=== PATIENT | female | born 1995 | race Caucasian/White ===

== ENCOUNTER 2022-12-28 08:40 | Inpatient (IN) ==
[~2022-12-28 08:40] MED LIST: CITRIC ACID/SODIUM CITRATE 15 ML UDC PO SCH
--- NOTE | 2022-12-28 09:09 | History & Physical Report ---
Date of Service December 28, 2022 Assessment & Plan (1) Breech presentation: Plan: Primary section History of Present Illness Chief Complaint: term with breech presentation with SROM Primary Care Provider: Aster Christina DO 27 F P0000 at 38.6 weeks with SROM clear fluid this AM and known to be breech. Ultrasound done at bedside confirms breech presentation. Allergies Allergy/AdvReac Type Severity Reaction Status Date / Time No Known Allergies Allergy Verified 12/25/22 16:42 Home Medications Medication Instructions Recorded Confirmed Type escitalopram oxalate 20 mg tablet 10 mg PO QAM 11/23/21 12/25/22 History (Lexapro) 1 cap PO QAM 12/25/22 12/25/22 History clindamycin phosphate 1 % topical 1 applic topical DAILY PRN ud 12/25/22 3 History gel Patient History Medical History Anxiety History of COVID-19 09/2021 (home test)- congestion, cold, runny nose > resolved Surgical History History of open reduction and internal fixation (ORIF) procedure Left Capitellar Fracture Hx of wisdom tooth extraction Family History (Updated 12/28/22 @ 09:07 by Kathleen Solorzano RN) Other No known health problems Social History Smoking Status: Never smoker Second Hand Exposure: No; Do You Dip or Chew Tobacco: No; Hx Alcohol Use: Yes Alcohol type: hard liquor Hx Substance Use: No Preferred Language: Romansh Communication Ability: Effective Shredding Floor Equipment Operator Required: No Beliefs That Will Affect Care: None marital status: Single Current Living Situation: Spouse current occupational status: employed Feels Safe at Home: Yes Assistive Devices: Contacts OB History breech CHEMICAL PUMPER History neg Review of Systems All systems reviewed & are unremarkable except as noted in HPI & below Physical Exam Constitutional: WD/WN, vitals as above Eyes: PERRL, conjunctivae normal, anicteric sclerae Respiratory: normal respiratory effort, lungs clear to auscultation Cardiovascular: RRR, no murmur, no edema Gastrointestinal (Abdomen): Inspection/Auscultation: abdomen normal to inspection Musculoskeletal: Extremities: extremities normal to inspection Skin: no rashes, warm and dry Neurologic: patellar DTR's 2+ bilat, sensation intact Psychiatric: A+Ox3, euthymic affect Genitourinary: OB Exam Abdomen: + fundal height and + breech OB Exam Monitor Tracing: + external FHT monitor used, + external uterine monitor used, + category I and + normal FHT variability Results & Data Vital Signs (Past 12 Hours) Vital Signs Pulse BP 12/28/22 08:52 67 126/83 Code Status & VTE Plan VTE Prophylaxis Plan VTE Prophylaxis will be ordered: No Monitoring External Monitor Cat 1
[2022-12-28] MEDS ORDERED: LACTATED RINGER'S 1,000 ML IV SCH ×2 (09:15→14:20)
--- NOTE | 2022-12-28 10:05 | Anesthesiology Consultation ---
Date of Service December 28, 2022 Assessment & Plan (1) Encounter for pre-operative examination: Chart Review Chart Review: Acceptable Risk for Surgery and Patient NOT seen in Pre Admission Testing Consults Requested none History Surgery Operation Date: 12/28/22 10:00 Proposed Procedures p Section in LD(Bilateral) - Carloz Brenner MD Height/Weight Height: 5 ft 2 in Weight: 124.738 kg Allergies Allergy/AdvReac Type Severity Reaction Status Date / Time No Known Allergies Allergy Verified 12/25/22 16:42 Medications Home Medications Medication Instructions Recorded Confirmed Last Taken escitalopram oxalate 20 mg tablet 10 mg PO QAM 11/23/21 12/28/22 12/28/22 (Lexapro) 1 cap PO QAM 12/25/22 12/28/22 12/27/22 clindamycin phosphate 1 % topical 1 applic topical DAILY PRN ud 12/25/22 12/28/22 Unknown gel Active Medications Generic Name Dose Route Start Last Admin Trade Name Freq PRN Reason Stop Dose Admin Lactated Ringer's 1,000 mls @ 999 mls/hr 12/28/22 09:15 12/28/22 09:35 Lr IV 12/28/22 10:15 125 mls/hr .Q1H1M MAR Administration Past Medical History Medical History Anxiety History of COVID-19 09/2021 (home test)- congestion, cold, runny nose > resolved Past Family History Family History Other No known health problems Past Surgical History Surgical History History of open reduction and internal fixation (ORIF) procedure Left Capitellar Fracture Hx of wisdom tooth extraction Social History Smoking Status: Never smoker Do You Dip or Chew Tobacco: No Hx Alcohol Use: No Alcohol type: hard liquor alcohol intake frequency: holidays/special occasions only Hx Substance Use: No substance use type: does not use Physical Exam Vital Signs Last Vital Signs Temp 97.9 F 12/28/22 09:11 Pulse 67 12/28/22 08:52 Resp 20 12/28/22 09:11 BP 126/83 12/28/22 08:52
[2022-12-28 10:33] LABS: Hematocrit (blood only) 34.5 % (37.0-47.0); Hemoglobin 11.8 g/dl (12.0-16.0); Mean Corpuscular Hemoglobin 31.6 pg (25.0-34.0); Mean Corpuscular Hgb Conc 34.2 g/dL (32.0-36.0); Mean Corpuscular Volume 92.2 fL (80.0-100.0); Platelet Count 227 K/uL (130-400); RDW Coefficient of Variation 13.2 % (11.5-14.5); RDW Standard Deviation 44.6 fL (36.4-46.3); Red Blood Count 3.74 M/uL (4.20-5.40); White Blood Count 10.86 K/ul (4.8-10.8)
[2022-12-28] MEDS ORDERED: KETOROLAC 30 MG/ML VIAL ONE (10:49)
[2022-12-28] MEDS ORDERED: fentaNYL citrate PF 100 MCG/2 ML VIAL ONE (10:49)
[2022-12-28] MEDS ORDERED: MoRPHine SULFATE PF 1 MG/ML 10 ML AMP/VIAL ONE (10:49)
[2022-12-28] MEDS ORDERED: ONDANSETRON INJ 2 MG/ML 2 ML VIAL ONE (10:49)
[2022-12-28] MEDS ORDERED: OXYTOCIN 10 UNITS/ML VIAL ONE (10:49)
[2022-12-28] MEDS ORDERED: MoRPHine SULFATE PF 1 MG/ML 10 ML AMP/VIAL INT SPINAL ONE (13:24)
[2022-12-28] MEDS ORDERED: LACTATED RINGER'S 500 ML IV PRN (13:24)
[2022-12-28] MEDS ORDERED: ePHEDrine sulfate 50 MG/ML AMP IV PRN (13:24)
[2022-12-28] MEDS ORDERED: NALOXONE HCL 0.08 MG in SYRINGE 1.8 ML IV PRN (13:24)
[2022-12-28] MEDS ORDERED: ACETAMINOPHEN 1,000 MG/100 ML VIAL IV PRN (13:24)
[2022-12-28] MEDS ORDERED: NALOXONE HCL 1 MG in SODIUM CHLORIDE 0.9% 1000ML 1,000 ML IV PRN (13:24)
[2022-12-28] MEDS ORDERED: ONDANSETRON INJ 2 MG/ML 2 ML VIAL IV PRN (13:24)
[2022-12-28] MEDS ORDERED: PROMETHAZINE HCL 12.5 MG in SODIUM CHLORIDE 0.9% 50 ML IV PRN (13:24)
[2022-12-28] MEDS ORDERED: HYDROmorphone INJ 0.5 MG/0.5 ML SYR IV PRN (13:24)
[2022-12-28] MEDS ORDERED: NALOXONE HCL 0.4 MG/1 ML VIAL/CARP IV PRN (13:24)
[2022-12-28] MEDS ORDERED: NALBUPHINE HCL INJ 10 MG/ML AMP IV PRN (13:24)
[2022-12-28] MEDS ORDERED: diphenhydrAMINE 50 MG/ML VIAL IV PRN (13:24)
[2022-12-28] MEDS ORDERED: SODIUM CHLORIDE 0.9% 1000ML 1,000 ML IV SCH (13:30)
[2022-12-28] MEDS ORDERED: NO NARCOTICS OR SEDATIVES SCH (13:30)
[2022-12-28] MEDS ORDERED: DIPHTHERIA/TETANUS/PERTUSSIS Vaccine (Tdap, Age 7+yrs) 0.5mL SYR/VL IM ONE (14:20)
[2022-12-28] MEDS ORDERED: HYDROCORTISONE ACETATE 25 MG SUPP PR PRN (14:20)
[2022-12-28] MEDS ORDERED: BENZOCAINE 20% SPRY 85 APPLN/85 GM CAN EXT PRN (14:20)
[2022-12-28] MEDS ORDERED: MAGNESIUM HYDROXIDE SUSP 30 ML UDC PO PRN (14:20)
[2022-12-28] MEDS ORDERED: SENNA 8.6 MG TAB PO PRN (14:20)
--- NOTE | 2022-12-28 14:26 | Post Operative Brief Note ---
Immediate Post Op Note v1 Date of Surgery December 28, 2022 Pre & Post Diagnosis Operation Date: 12/28/22 10:00 Pre-Op Diagnosis: 1. for Breech presentation Post-Op Diagnosis: 1. for Breech presentation I identified the patient and participated in the time-out.: Yes Procedure Operation Date: 12/28/22 10:00 Actual Procedures p Section in LD [facility] @ 1316 - Carloz Brenner MD Surgeon Carloz Brenner MD Transit Proof Machine Operator Dr Pauline Anthony Estimated Blood Loss 500 Findings Consistent with Post-Op Diagnosis live female Apgars 8/9 &lb. 2oz. kayla breech Fluids LR 1200 ml. Specimens placenta Drains Solorio Catheter (patent and draining clear yellow urine) Anesthesia Type Spinal Complications none Disposition Accompanied Patient To Recovery: Yes Overlapping Procedure I was present for: the critical portions of procedure. I was immediately available: during the entire case. Back up surgeon: was not required during procedure.
--- NOTE | 2022-12-28 14:42 | Anesthesiology Progress Note ---
Date of Service December 28, 2022 Anesthesia Post Procedure Vital Signs Vital Signs: Temp Pulse Resp BP Pulse Ox 12/28/22 14:30 20 12/28/22 14:20 20 12/28/22 14:10 97.9 F 20 12/28/22 09:11 97.9 F 20 12/28/22 14:37 71 99 12/28/22 14:34 88 97/47 L 12/28/22 14:32 93 H 99 12/28/22 14:27 77 99 12/28/22 14:23 81 96/58 L 12/28/22 14:22 79 98 12/28/22 14:17 60 99 12/28/22 14:15 72 92 12/28/22 14:12 76 97 12/28/22 14:08 65 112/55 L 12/28/22 14:07 69 97 12/28/22 10:27 97.9 F 89 20 108/54 L 12/28/22 08:52 97.9 F 67 20 126/83 Transfer of Care Handoff Completed per policy Notes Mental Status: alert / awake / arousable and participated in evaluation Patient Amnestic to Procedure: No Nausea / Vomiting: adequately controlled Pain: adequately controlled Airway Patency, RR, SpO2: stable & adequate BP & HR: stable & adequate Hydration State: stable & adequate Neuraxial Anesthesia: was administered and sensory block is resolving Anesthetic Complications: no major complications apparent and Pt Satisfied with anesthetic care
[2022-12-28] MEDS ORDERED: OXYTOCIN 20 UNITS in LACTATED RINGER'S 1,000 ML IV SCH (15:15)
[2022-12-28] MEDS: SIMETHICONE 80 MG CHEW PO SCH ×2 (15:39→21:46)
[2022-12-28] MEDS: DOCUSATE SODIUM 100 MG CAP PO SCH (21:46)
[2022-12-29] MEDS: KETOROLAC 30 MG/ML VIAL IV PRN ×2 (00:10→06:07)
[2022-12-29] MEDS ORDERED: LACTATED RINGER'S 1,000 ML IV ONE (00:32)
[2022-12-29] MEDS ORDERED: LACTATED RINGER'S 250 ML IV ONE (00:32)
[2022-12-29] MEDS ORDERED: DC INTRASPINAL MORPHINE SCH (07:24)
[2022-12-29] MEDS ORDERED: diphenhydrAMINE 50 MG/ML VIAL IV PRN (07:25)
[2022-12-29] MEDS ORDERED: diphenhydrAMINE Capsule 25 MG CAP PO PRN (07:25)
[2022-12-29] MEDS ORDERED: PROMETHAZINE HCL 25 MG in SODIUM CHLORIDE 0.9% 50 ML IV PRN (07:25)
[2022-12-29] MEDS ORDERED: MEPERIDINE HCL 50 MG/ML CARP IV PRN (07:25)
[2022-12-29] MEDS ORDERED: KETOROLAC 30 MG/ML VIAL IV PRN (07:25)
[2022-12-29] MEDS ORDERED: ONDANSETRON INJ 2 MG/ML 2 ML VIAL IV PRN (07:25)
[2022-12-29] MEDS: SIMETHICONE 80 MG CHEW PO SCH ×4 (07:32→20:18)
[2022-12-29] MEDS: DOCUSATE SODIUM 100 MG CAP PO SCH ×2 (07:32→20:18)
[2022-12-29] MEDS: PRENATAL VITAMIN 1 TAB PO SCH (07:32)
[2022-12-29] MEDS: FERROUS SULFATE 325 MG TAB PO SCH (07:32)
[2022-12-29] MEDS: ESCITALOPRAM OXALATE 10 MG TAB PO SCH (07:33)
[2022-12-29] MEDS ORDERED: PRENATAL PO SCH (09:00)
--- NOTE | 2022-12-29 09:25 | Obstetrical Progress Note ---
Date of Service December 29, 2022 Subjective Ambulation: ambulating normally Voiding: no voiding problems Passing Gas:: Yes Diet Tolerance:: regular diet Lochia:: Small Feeding Type:: breast feeding Current Pain Level(1-10): 0 doing well Physical Exam Constitutional WD/WN, vitals as above Gastrointestinal (Abdomen) Inspection/Auscultation: abdomen normal to inspection and + abdominal surgical incision Musculoskeletal Extremities: extremities normal to inspection Skin no rashes, warm and dry Neurologic patellar DTR's 2+ bilat, sensation intact Psychiatric A+Ox3, euthymic affect Results & Data Vital Signs (Past 12 Hours) Vital Signs Temp Pulse Resp BP Pulse Ox O2 Del Method 12/29/22 08:00 36.9 C 90 16 129/83 97 Room Air 12/29/22 06:03 18 100 12/29/22 05:00 18 98 12/29/22 04:00 18 98 12/29/22 03:00 18 97 12/29/22 04:35 37.1 C 79 18 124/80 98 Room Air 12/29/22 02:00 18 98 12/29/22 01:00 18 97 12/29/22 00:00 18 98 12/28/22 23:11 18 99 12/28/22 22:56 36.7 C 82 18 123/71 97 Room Air 12/28/22 22:00 20 98 Laboratory Results Laboratory Results - last 72 hr 12/28/22 12/28/22 10:17 10:17 WBC 10.86 H RBC 3.74 L Hgb 11.8 L Hct 34.5 L MCV 92.2 MCH 31.6 MCHC 34.2 RDW Std Deviation 44.6 RDW Coeff of Tushar 13.2 Plt Count 227 MPV 11.0 Blood Type A Positive Antibody Screen NEGATIVE
[2022-12-29 10:25] LABS: Basophils # (auto) 0.04 K/uL (0-0.2); Basophils % (auto) 0.4 %; Eosinophils # (auto) 0.08 K/uL (0-0.50); Eosinophils % (auto) 0.9 %; Hematocrit (blood only) 26.5 % (37.0-47.0); Hemoglobin 9.3 g/dl (12.0-16.0); Immature Granulocytes # (auto) 0.16 K/uL (0.01-0.20); Immature Granulocytes % (auto) 1.7 %; Lymphocytes # (auto) 1.93 K/uL (1.2-3.4); Lymphocytes % (auto) 20.7 %; Mean Corpuscular Hemoglobin 32.4 pg (25.0-34.0); Mean Corpuscular Hgb Conc 35.1 g/dL (32.0-36.0); Mean Corpuscular Volume 92.3 fL (80.0-100.0); Mean Platelet Volume 11.4 fL (9.4-12.4); Monocytes # (auto) 0.75 K/uL (0.11-0.59); Monocytes % (auto) 8.1 %; Neutrophils # (auto) 6.35 K/uL (1.40-6.50); Neutrophils % (auto) 68.2 %; Platelet Count 171 K/uL (130-400); RDW Standard Deviation 43.1 fL (36.4-46.3); Red Blood Count 2.87 M/uL (4.20-5.40); White Blood Count 9.31 K/ul (4.8-10.8)
[2022-12-29] MEDS: IBUPROFEN 600 MG TAB PO PRN ×2 (12:50→16:55)
[2022-12-29] MEDS: oxyCODONE/ACETAMINOPHEN 5mg/325mg TAB PO PRN ×2 (12:51→16:55)
[2022-12-29] MEDS ORDERED: MEASLES, MUMPS & RUBELLA VIRUS VIAL SQ ONE (14:24)
[2022-12-29] MEDS ORDERED: bisacodyL 5 MG TABEC PO SCH (20:00)
[2022-12-30] MEDS: IBUPROFEN 600 MG TAB PO PRN ×2 (04:55→09:51)
[2022-12-30] MEDS: oxyCODONE/ACETAMINOPHEN 5mg/325mg TAB PO PRN ×2 (04:55→09:51)
[2022-12-30 06:15] LABS: Hematocrit (blood only) 26.9 % (37.0-47.0); Hemoglobin 9.4 g/dl (12.0-16.0)
[2022-12-30] MEDS ORDERED: MEASLES, MUMPS & RUBELLA VIRUS VIAL ONE (08:23)
[2022-12-30] MEDS: PRENATAL VITAMIN 1 TAB PO SCH (09:50)
[2022-12-30] MEDS: DOCUSATE SODIUM 100 MG CAP PO SCH (09:51)
[2022-12-30] MEDS: FERROUS SULFATE 325 MG TAB PO SCH (09:51)
[2022-12-30] MEDS: SIMETHICONE 80 MG CHEW PO SCH (09:53)
[2022-12-30] MEDS: ESCITALOPRAM OXALATE 10 MG TAB PO SCH (10:13)
[2022-12-30] MEDS ORDERED: bisacodyL 10 MG SUPP PR PRN (14:10)
--- NOTE | 2023-01-09 17:21 | Operative Report ---
Post Operative Report Pre & Post Diagnosis Operation Date: 12/28/22 10:00 Pre-Op Diagnosis: 1. for Breech presentation Post-Op Diagnosis: 1. for Breech presentation I identified the patient and participated in the time-out.: Yes Procedure Operation Date: 12/28/22 10:00 Actual Procedures p Section in LD [facility] @ 1316 - Carloz Brenner MD Surgeon Carloz Brenner MD Rewards Consultant Dr Pauline Anthony Estimated Blood Loss 500 Findings Consistent with Post-Op Diagnosis I female Apgars 8 and 9 weight pending Yossi breech Fluids Total fluids LR 1200 mL Specimens specimen placenta Drains Solorio Complications None Disposition Accompanied Patient To Recovery: Yes Indications Breech presentation Description of Procedure Description of procedure under satisfactory spinal anesthesia the patient was prepped draped usual sterile fashion. Timeout was called prior to start of procedure antibiotics were given preop. A Pfannenstiel incision was made entering into the abdominal cavity in successive layers without difficulty. Low segment transverse incision over the lower uterine segment was made the incision was widened in the AP diameter with blunt dissection and then the amniotic sac was nicked from baby delivering a live male from the vertex presentation with Apgars of 8 and 9 weight is pending. Cord blood was then obtained placenta was then delivered spontaneously and intact. Uterus was then exteriorized ring forceps were then placed on both angles the inferior margin uterus was closed and a layer closure with 0 Vicryl suture in a continuous interlocking fashion followed by a second imbricating layer of 0 Vicryl suture. The contents of the lower uterine segment segment were then inspected for any bleeding no active bleeding was noted the initial sponge needle instrument count were found to be correct the contents of the pelvic and abdominal cavity were then irrigated to clear. Uterus was then placed back into the normal anatomical position. The fascia was then reapproximated from both ends using 0 Vicryl sutu re in a continuous fashion subcuticular layer was then irrigated and then closed with 3-0 plain suture interrupted. Following this the layers were then closed with 4 Monocryl. Clear urine is clear urine noted from the Solorio estimated blood loss 500 mL the final sponge needle instrument count were found to be correct the patient was then placed supine on the stretcher taken recovery room in stable condition end of dictation discharge summary thank you I attest to the content of the Intraoperative Record and any orders documented therein. Any exceptions are noted below. Dr. Anthony was needed to provide retraction to provide exposure and to assist at sewing up the layers of the uterus and the abdomen and closure.
--- NOTE | 2023-01-09 17:23 | Discharge Summary ---
Date of Service January 09, 2023 Admission HPI Per Admitting Provider 27 F P0000 at 38.6 weeks with SROM clear fluid this AM and known to be breech. Ultrasound done at bedside confirms breech presentation. Patient underwent section delivering a live female in the kayla breech presentation. She was subsequently discharged home in stable condition home- going instructions were reviewed with the patient. condition on discharge is stable regular diet on discharge medications as below and follow-up in the office. end of dictation Discharge Data Consultations 12/28/22 09:02 Consult Anesthesiology Stat Procedures Performed Operation Date: 12/28/22 10:00 Actual Procedures p Section in LD [facility] @ 1316 - Carloz Brenner MD
== END 2022-12-30 14:10 | disposition home or self-care (01) | DRG 788 ==
LOC: OPB 08:40 → 4S1 08:41 → 4E2 17:00

== ENCOUNTER 2024-12-11 18:17 | Observation (INO) ==
[2024-12-11 19:23] LABS: Hematocrit (blood only) 34.4 % (37.0-47.0); Hemoglobin 11.6 g/dl (12.0-16.0); Immature Granulocytes # (auto) 0.24 K/uL (0.01-0.20); Immature Granulocytes % (auto) 2.3 %; Mean Corpuscular Hemoglobin 31.6 pg (25.0-34.0); Mean Corpuscular Volume 93.7 fL (80.0-100.0); Platelet Count 262 K/uL (130-400); RDW Standard Deviation 47.4 fL (36.4-46.3); Red Blood Count 3.67 M/uL (4.20-5.40); White Blood Count 10.30 K/ul (4.8-10.8)
--- NOTE | 2024-12-11 19:23 | Emergency Department Note ---
Impression & Plan Right upper quadrant abdominal pain, Gallstones, Abnormal LFTs ED Provider Note NAME: VICK NERI AGE: 29 SEX: F : 1995 ARRIVES VIA: Walk-In INFORMANT: Patient, ED PROVIDER(S): Mohan Garsia DO CHIEF COMPLAINT: Abdominal pain HPI: The patient is a 29-year-old female who presented to the emergency department for an evaluation of right upper quadrant abdominal pain. This is her second . She is currently 22 weeks . She has been noticing intermittent sharp upper abdominal pain worsens with food. She called her MATERIAL CHECKER doctor. Initially they recommended Tylenol. They did state that the patient's pain got worse or continues that she should come to the emergency department. The pain did worsen this afternoon but she has no pain at this time. She also notices nausea at the time of the pain. ROS: See above HPI for pertinent positives & negatives. A total of 10 systems reviewed and were otherwise negative. PAST MEDICAL HISTORY: See Below PAST SURGICAL HISTORY: See Below FAMILY HISTORY: See Below SOCIAL HISTORY: See Below HOME MEDICATIONS: See Below ALLERGIES: See Below VITALS: See Below PHYSICAL EXAMINATION: GENERAL: Patient is awake alert in no acute distress patient is resting comfortably and showing no signs of anxiety EYES: The conjunctivae are clear. The pupils are round and reactive. EARS, NOSE, MOUTH AND THROAT: The nose is without any evidence of any deformity. NECK: The neck is nontender and supple. RESPIRATORY: Normal respiratory effort is noted there is no evidence of wheezing rhonchi or rales CARDIOVASCULAR: Regular rate and rhythm noted there no murmurs rubs or gallops normal S1 normal S2. GASTROINTESTINAL: The abdomen is soft. The abdomen is gravid in appearance. The fundal height is just below the umbilicus. MUSCULOSKELETAL/EXTREMITIES: There is no evidence of gross deformity full range of motion is noted in the hips and shoulders. SKIN: There is no obvious evidence of any rash. There are no petechiae, pallor or cyanosis noted. NEUROLOGIC: Patient is awake alert and oriented x3 strength is symmetric patellar reflexes are 2+ bilaterally MEDICAL DECISION MAKING: The patient is a 29-year-old female who presented to the emergency department for an evaluation of right upper quadrant abdominal pain. The patient had reproducible right upper quadrant abdominal pain over the last 24 hours. The patient presented to the emergency department this evening but pain resolved prior to arrival. The patient's physical exam was not consistent with acute surgical abdomen. She was found to have abnormal LFTs which could be consistent with an obstructive pattern. I do not feel this is related to the as she has no other lower abdominal pain. Blood pressure was normal. The patient did have trace protein in the urine however. I discussed the patient's laboratory and radiographic studies with the on-call accountant bookkeeper. I also discussed this case with the on-call [facility] MATERIAL CHECKER doctor as well as the on- call [facility] hospitalist. Triage Nursing notes reviewed. Prior medical records reviewed Vital Signs: reviewed and remarkable for no significant abnormalities Differential diagnosis: Appendicitis, ovarian cyst, ovarian torsion, ectopic , TOA, PID, infections, diverticulitis, UTI, obstruction, mesenteric ischemia, aortic pathology, inflammatory bowel disease, renal colic, PUD, pancreatitis, biliary pathology, hernia, volvulus, constipation, as well as other pathologies. ER treatment provided: See below Diagnostics interpreted by me: ECG: none Cardiac Monitoring: An order was placed for continuous cardiac monitoring. The monitor shows a rate of 70 bpm with sinus rhythm. Laboratory studies: As stated above and show below. Imaging studies: See below. Radiographic imaging was reviewed by myself Consultation(s): I discussed this case with Dr. Ahn who is on-call for the gastroenterology group. I discussed this case with Dr. Brenner who is on-call for MATERIAL CHECKER. I discussed this case with Dr. Whitaker who is on-call for the [facility] hospitalist group. Past Med/Surg History Problem List Abnormal LFTs (Acute) Gallstones (Acute) Right upper quadrant abdominal pain (Acute) No significant past medical history No significant past surgical history Medical History Breech presentation Anxiety History of COVID-19 09/2021 (home test)- congestion, cold, runny nose > resolved Surgical History History of open reduction and internal fixation (ORIF) procedure Left Capitellar Fracture Hx of wisdom tooth extraction Family History Other No known health problems Social History Smoking Status: Never smoker Second Hand Exposure: No; Do You Dip or Chew Tobacco: No; Hx Alcohol Use: No Hx Substance Use: No Preferred Language: Bangladeshi Communication Ability: Effective Screen Operator Required: No Beliefs That Will Affect Care: None marital status: marital status details: Mahad Neri Current Living Situation: Spouse current occupational status: employed 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 Feels Safe at Home: Yes Assistive Devices: None Allergies Allergies Allergy/AdvReac Type Severity Reaction Status Date / Time No Known Allergies Allergy Verified 12/25/22 16:42 Home Meds Home Medications Medication Instructions Recorded Confirmed escitalopram oxalate 20 mg tablet 20 mg PO QAM 12/11/24 12/11/24 Results & Data (ED) Vital Signs Vital Signs - 24 hr 12/11/24 18:18 12/11/24 18:39 12/11/24 19:39 Temperature 36.9 C Temperature Source Temporal Artery Scan Pulse Rate 83 76 Pulse Rate from SpO2 Sensor Pulse Rhythm Regular Pulse Strength Normal Respiratory Rate 18 Respiratory Effort / Characteristics Non-Labored Spontaneous Respiratory Depth Normal Respiratory Pattern Regular Blood Pressure 133/78 120/69 Blood Pressure [Left Arm] Blood Pressure Mean 96 79 Blood Pressure Mean [Left Arm] Blood Pressure Position Sitting Pulse Oximetry 97 Oxygen Delivery Method Room Air Sepsis Recent Fever Within 48 Hours No Sepsis New/Unexplained Change in Mental Status N/A Sepsis Action Taken by Nursing No Action Required 12/11/24 20:06 12/11/24 22:12 12/11/24 22:36 Temperature 36.6 C Temperature Source Oral Pulse Rate 74 70 Pulse Rate from SpO2 Sensor 74 Pulse Rhythm Pulse Strength Respiratory Rate 18 17 Respiratory Effort / Characteristics Respiratory Depth Respiratory Pattern Blood Pressure 135/73 Blood Pressure [Left Arm] 130/68 Blood Pressure Mean 93 Blood Pressure Mean [Left Arm] 88 Blood Pressure Position Pulse Oximetry 98 96 Oxygen Delivery Method Sepsis Recent Fever Within 48 Hours Sepsis New/Unexplained Change in Mental Status Sepsis Action Taken by [facility] Medications Current Medication List: was personally reviewed by me Laboratory Data Attestation: I reviewed the patient's lab results. 12/11/24 18:40 12/11/24 18:40 Lab Results 12/11/24 12/11/24 Range/Units 18:40 21:00 WBC 10.30 (4.8-10.8) K/ul RBC 3.67 L (4.20-5.40) M/uL Hgb 11.6 L (12.0-16.0) g/dl Hct 34.4 L (37.0-47.0) % MCV 93.7 (80.0-100.0) fL MCH 31.6 (25.0-34.0) pg MCHC 33.7 (32.0-36.0) g/dL RDW Std Deviation 47.4 H (36.4-46.3) fL RDW Coeff of Tushar 14.2 (11.5-14.5) % Plt Count 262 (130-400) K/uL MPV 10.4 (9.4-12.4) fL Immature Gran % (Auto) 2.3 % Neut % (Auto) 67.4 % Lymph % (Auto) 23.4 % [place] % (Auto) 5.8 % Eos % (Auto) 0.8 % Baso % (Auto) 0.3 % Neut # (Auto) 6.94 H (1.40-6.50) K/uL Lymph # (Auto) 2.41 (1.20-3.40) K/uL [place] # (Auto) 0.60 H (0.11-0.59) K/uL Eos # (Auto) 0.08 (0.00-0.50) K/uL Baso # (Auto) 0.03 (0.00-0.20) K/uL Immature Gran # (Auto) 0.24 H (0.01-0.20) K/uL Absolute Nucleated RBC 0.02 (0.00-0.12) K/uL Nucleated RBC % (auto) 0.2 % Sodium 138 (136-145) mmol/L Potassium 3.6 (3.5-5.1) mmol/L Chloride 106 (98-107) mmol/L Carbon Dioxide 24 (21-32) mmol/L Anion Gap 8 (3-11) BUN 5 L (6-23) mg/dl Creatinine 0.62 (0.6-1.2) mg/dl Est Cr Clr Drug Dosing 159.8 ml/min eGFR 122.78 BUN/Creatinine Ratio 8.1 L (10-20) Glucose 83 (70-99(Fasting)) mg/dl Calcium 9.0 (8.6-10.3) mg/dl Total Bilirubin 3.6 H (0.2-1.0) mg/dl Direct Bilirubin 2.5 H (0-0.2) mg/dl AST 163 H (13-39) U/L ALT 204 H (7-52) U/L Alkaline Phosphatase 139 H (34-104) U/L Total Protein 6.9 (6.0-8.3) gm/dl Albumin 3.6 (3.4-5.0) gm/dl Globulin 3.3 (2.5-4.0) gm/dl Albumin/Globulin Ratio 1.1 (0.9-2) Lipase 48 (11-82) U/L Urine Color Dark Yellow Urine Appearance Clear (Clear) Urine pH 6.5 (4.5-7.5) Ur Specific [place] 1.020 (1.000-1.030) Urine Protein Trace H (Negative) Urine Glucose (UA) Negative (Negative) Urine Ketones 3+ H (Negative) Urine Blood Negative (Negative) Urine Nitrite Negative (Negative) Urine Bilirubin 3+ H (Negative) Urine Urobilinogen Negative (Negative) Ur Leukocyte Esterase Trace H (Negative) Urine WBC (Auto) 0-5 (0-5) /hpf Urine RBC (Auto) 0-2 (0-2) /hpf U Hyaline Cast (Auto) 0-2 (0-2) /lpf U Epithel Cells (Auto) 3-5 H (0-2) /hpf Urine Bacteria (Auto) 1+ H (None Seen) Urine Comment Administered Medications Discontinued Medications Sodium Chloride (Nss) 500 mls @ 999 mls/hr IV .Q31M STA Stop: 12/11/24 19:35 Last Infusion: 12/11/24 22:40 Dose: Infused Documented By: Admin: 12/11/24 19:32 Dose: 999 mls/hr Documented By: ANN Imaging Data Attestation: I personally reviewed and interpreted this imaging study as follows: My Impression: Ultrasound of the right upper quadrant was obtained. My interpretation is gallstones are noted, final report below. Radiologist's Impression: Obstetrics Ultrasound 12/11/24 19:05 Exam(s): US OB LIMITED EXAM: US , Limited CLINICAL HISTORY: Reason for exam: pain. TECHNIQUE: Real-time limited ultrasound of the maternal uterus with image documentation. COMPARISON: No relevant prior studies available. FINDINGS: Gestational age: Estimated gestational age 22 weeks and 5 days. CECELIA: Estimated date of delivery by ultrasound is 04/11/2025. Heart rate: heart rate 148 bpm. Placenta: Anterior placenta. No previa or abruption. Cervix: Cervix closed measuring 7.5 cm. Adnexa: Normal appearance of the ovaries. No suspicious adnexal lesion or torsion. IMPRESSION: Single living intrauterine with estimated gestational age 22 weeks and 5 days. No acute abnormality identified. Electronically signed by: Miko Henning MD 12/11/24 21:11 PM Gallbladder Ultrasound 12/11/24 19:06 Exam(s): US GALLBLADDER EXAM: US Abdomen Limited, Right Upper Quadrant CLINICAL HISTORY: Reason for exam: pain. TECHNIQUE: Real-time ultrasound of the right upper quadrant with image documentation. COMPARISON: No relevant prior studies available. FINDINGS: Liver: Liver enlarged measuring 20 cm with diffusely increased echogenicity. No focal lesion identified. Gallbladder: Stones fill the gallbladder. No wall thickening or pericholecystic fluid. Negative Strange sign. Common bile duct: CBD measures 4 mm. Pancreas: Unremarkable as visualized. Right kidney: Unremarkable. No hydronephrosis. IMPRESSION: 1. Cholelithiasis without cholecystitis. 2. Hepatomegaly and hepatic steatosis. Electronically signed by: Miko Henning MD 12/11/24 21:10 PM Discharge Plan Visit Data Chief Complaint: Abdominal Pain Stated Complaint: ABDOMINAL/SIDE PAIN AND VOMITING, ED Provider: Mohan Garsia Discharge Problem: Right upper quadrant abdominal pain, Gallstones, Abnormal LFTs Patient Disposition: Being Evaluated by Hospitalist Condition: Good Forms Stand Alone Forms: My Sendmail Prescriptions Prescriptions: No Action escitalopram oxalate 20 mg tablet 20 mg PO QAM Referrals Referrals: Aster Christina DO [Primary Care Provider] -
[2024-12-11] MEDS: SODIUM CHLORIDE 0.9% 500 ML IV STA (19:32)
[2024-12-11 19:45] LABS: Alanine Aminotransferase 204.0 U/L (7-52); Albumin Globulin Ratio 1.1 (0.9-2); Alkaline Phosphatase 139.0 U/L (34-104); Anion Gap 8.0 (3-11); Bilirubin,Total 3.6 mg/dl (0.2-1.0); Blood Urea Nitrogen 5.0 mg/dl (6-23); Calcium 9.0 mg/dl (8.6-10.3); Carbon Dioxide 24.0 mmol/L (21-32); Chloride 106.0 mmol/L (98-107); Creatinine Clr Calc Pharmacy 159.8 ml/min; Globulin 3.3 gm/dl (2.5-4.0); Glucose 83.0 mg/dl (70-99(Fasting)); Lipase 48.0 U/L (11-82); Potassium 3.6 mmol/L (3.5-5.1); Sodium 138.0 mmol/L (136-145); Total Protein 6.9 gm/dl (6.0-8.3)
--- NOTE | 2024-12-11 21:10 | Ultrasound Report ---
Exam(s): US GALLBLADDER EXAM: US Abdomen Limited, Right Upper Quadrant CLINICAL HISTORY: Reason for exam: pain. TECHNIQUE: Real-time ultrasound of the right upper quadrant with image documentation. COMPARISON: No relevant prior studies available. FINDINGS: Liver: Liver enlarged measuring 20 cm with diffusely increased echogenicity. No focal lesion identified. Gallbladder: Stones fill the gallbladder. No wall thickening or pericholecystic fluid. Negative Strange sign. Common bile duct: CBD measures 4 mm. Pancreas: Unremarkable as visualized. Right kidney: Unremarkable. No hydronephrosis. IMPRESSION: 1. Cholelithiasis without cholecystitis. 2. Hepatomegaly and hepatic steatosis. Electronically signed by: Miko Henning MD 12/11/24 21:10 PM
--- NOTE | 2024-12-11 21:12 | Ultrasound Report ---
Exam(s): US OB LIMITED EXAM: US , Limited CLINICAL HISTORY: Reason for exam: pain. TECHNIQUE: Real-time limited ultrasound of the maternal uterus with image documentation. COMPARISON: No relevant prior studies available. FINDINGS: Gestational age: Estimated gestational age 22 weeks and 5 days. CECELIA: Estimated date of delivery by ultrasound is 04/11/2025. Heart rate: heart rate 148 bpm. Placenta: Anterior placenta. No previa or abruption. Cervix: Cervix closed measuring 7.5 cm. Adnexa: Normal appearance of the ovaries. No suspicious adnexal lesion or torsion. IMPRESSION: Single living intrauterine with estimated gestational age 22 weeks and 5 days. No acute abnormality identified. Electronically signed by: Miko Henning MD 12/11/24 21:11 PM
[2024-12-11 21:35] LABS: Appearance Urine Clear (Clear); Bacteria Urine Automated 1+ (None Seen); Cast Urine Automated 0-2 /lpf (0-2); Glucose Urine UA Negative (Negative); RBC Urine Automated 0-2 /hpf (0-2); WBC Urine Automated 0-5 /hpf (0-5)
--- NOTE | 2024-12-11 23:07 | History & Physical Report ---
Date of Service December 11, 2024 Assessment & Plan (1) Right upper quadrant abdominal pain: Plan: Assessment and plan below following discussion of case with ED provider and reviewing patient history/pertinent normal/abnormal diagnostic test results. RUQ pain with transaminitis Underlying fatty liver on imaging Cholelithiasis on imaging Possible passed gallstone Rule out biliary tract obstruction currently 22 weeks AOG Anemia of Mood disorder, stable OBS Admit to medical GI consult re: abnormal LFTs (ED provider already in touch with Dr. Ahn who recommends MRCP.) OB consult re: check (ED provider already in touch with Dr. Flaherty.) DVT prophylaxis. SCDs Full code Text document was generated using [employer] voice recognition software. It may contain grammatical or spelling errors. Kindly contact undersigned for clarification of any documentation item in question. History of Present Illness Chief Complaint: Abdominal pain Primary Care Provider: Aster Christina DO History obtained from patient, family, and records. Medical history significant for anxiety/mood disorder, (currently 22 weeks AOG). Last confinement January 2023 for breech status post CS. Yesterday, patient experienced achy right upper quadrant pain with nausea emesis following a meal comprising of cheeseburger and chicken nuggets from the local [employer]. Intermittent symptoms overnight. No fever, no chills. No prior episodes. Denies chest pain, SOB. Denies inordinate Tylenol intake. Outpatient OB provider recommended avoiding fatty food intake, outpatient RUQ ultrasound. Patient directed to ER due to worsening symptoms. 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 Allergies Allergy/AdvReac Type Severity Reaction Status Date / Time No Known Allergies Allergy Verified 12/25/22 16:42 Home Medications Medication Instructions Recorded Confirmed Type escitalopram oxalate 20 mg tablet 20 mg PO QAM 12/11/24 12/11/24 History Past Med/Surg History Problem List Abnormal LFTs (Acute) Gallstones (Acute) Right upper quadrant abdominal pain (Acute) No significant past medical history No significant past surgical history Medical History Breech presentation Anxiety History of COVID-19 09/2021 (home test)- congestion, cold, runny nose > resolved Surgical History History of open reduction and internal fixation (ORIF) procedure Left Capitellar Fracture Hx of wisdom tooth extraction Family History Other No known health problems Social History Smoking Status: Never smoker Second Hand Exposure: No; Do You Dip or Chew Tobacco: No; Tobacco Cessation Education Requested by Patient: No Hx Alcohol Use: No Hx Substance Use: No Preferred Language: Georgian Communication Ability: Effective Investigation Officer Required: No Beliefs That Will Affect Care: None marital status: marital status details: Mahad Neri Current Living Situation: Spouse and Family current occupational status: employed current occupation: [employer] Other Information That Helps Us Care for You: No Feels Safe at Home: Yes Safety Concerns: Feels Safe At This Time Assistive Devices: None Review of Systems Review of Systems: As per HPI, all other systems reviewed and negative Physical Exam Physical Exam: GENERAL: Comfortable, pleasant, morbidly obese, no respiratory distress SKIN: Normal color, warm HEENT: [employer] palpebral conjunctivae, no ptosis, dry buccal mucosa NECK : Supple, no tenderness CHEST : CTA, no tenderness HEART : RRR, no obvious murmurs ABDOMEN: distention, right upper quadrant tenderness EXTREMITIES : Bilateral LE swelling without LE tenderness, palpable pulses, no other conspicuous deformities noted NEUROLOGIC : Coherent, no facial asymmetry, no other gross focality Results & Data Results & Data Vital Signs (Past 12 Hours) Vital Signs Temp Pulse Resp BP BP Pulse Ox O2 Del Method 12/11/24 22:36 70 12/11/24 22:12 74 17 135/73 96 12/11/24 20:06 36.6 C 18 130/68 98 12/11/24 19:39 120/69 12/11/24 18:39 76 12/11/24 18:18 36.9 C 83 18 133/78 97 Room Air Laboratory Results Laboratory Results WBC 10.30 K/ul (4.8-10.8) 12/11/24 18:40 RBC 3.67 M/uL (4.20-5.40) L 12/11/24 18:40 Hgb 11.6 g/dl (12.0-16.0) L 12/11/24 18:40 Hct 34.4 % (37.0-47.0) L 12/11/24 18:40 MCV 93.7 fL (80.0-100.0) 12/11/24 18:40 MCH 31.6 pg (25.0-34.0) 12/11/24 18:40 MCHC 33.7 g/dL (32.0-36.0) 12/11/24 18:40 RDW Std Deviation 47.4 fL (36.4-46.3) H 12/11/24 18:40 RDW Coeff of Tushar 14.2 % (11.5-14.5) 12/11/24 18:40 Plt Count 262 K/uL (130-400) 12/11/24 18:40 MPV 10.4 fL (9.4-12.4) 12/11/24 18:40 Immature Gran % (Auto) 2.3 % 12/11/24 18:40 Neut % (Auto) 67.4 % 12/11/24 18:40 Lymph % (Auto) 23.4 % 12/11/24 18:40 [place] % (Auto) 5.8 % 12/11/24 18:40 Eos % (Auto) 0.8 % 12/11/24 18:40 Baso % (Auto) 0.3 % 12/11/24 18:40 Neut # (Auto) 6.94 K/uL (1.40-6.50) H 12/11/24 18:40 Lymph # (Auto) 2.41 K/uL (1.20-3.40) 12/11/24 18:40 [place] # (Auto) 0.60 K/uL (0.11-0.59) H 12/11/24 18:40 Eos # (Auto) 0.08 K/uL (0.00-0.50) 12/11/24 18:40 Baso # (Auto) 0.03 K/uL (0.00-0.20) 12/11/24 18:40 Immature Gran # (Auto) 0.24 K/uL (0.01-0.20) H 12/11/24 18:40 Absolute Nucleated RBC 0.02 K/uL (0.00-0.12) 12/11/24 18:40 Nucleated RBC % (auto) 0.2 % 12/11/24 18:40 Sodium 138 mmol/L (136-145) 12/11/24 18:40 Potassium 3.6 mmol/L (3.5-5.1) 12/11/24 18:40 Chloride 106 mmol/L (98-107) 12/11/24 18:40 Carbon Dioxide 24 mmol/L (21-32) 12/11/24 18:40 Anion Gap 8 (3-11) 12/11/24 18:40 BUN 5 mg/dl (6-23) L 12/11/24 18:40 Creatinine 0.62 mg/dl (0.6-1.2) 12/11/24 18:40 Est Cr Clr Drug Dosing 159.8 ml/min 12/11/24 18:40 eGFR 122.78 12/11/24 18:40 BUN/Creatinine Ratio 8.1 (10-20) L 12/11/24 18:40 Glucose 83 mg/dl (70-99(Fasting)) 12/11/24 18:40 Calcium 9.0 mg/dl (8.6-10.3) 12/11/24 18:40 Total Bilirubin 3.6 mg/dl (0.2-1.0) H 12/11/24 18:40 Direct Bilirubin 2.5 mg/dl (0-0.2) H 12/11/24 18:40 AST 163 U/L (13-39) H 12/11/24 18:40 ALT 204 U/L (7-52) H 12/11/24 18:40 Alkaline Phosphatase 139 U/L (34-104) H 12/11/24 18:40 Total Protein 6.9 gm/dl (6.0-8.3) 12/11/24 18:40 Albumin 3.6 gm/dl (3.4-5.0) 12/11/24 18:40 Globulin 3.3 gm/dl (2.5-4.0) 12/11/24 18:40 Albumin/Globulin Ratio 1.1 (0.9-2) 12/11/24 18:40 Lipase 48 U/L (11-82) 12/11/24 18:40 Urine Color Dark Yellow 12/11/24 21:00 Urine Appearance Clear (Clear) 12/11/24 21:00 Urine pH 6.5 (4.5-7.5) 12/11/24 21:00 Ur Specific [place] 1.020 (1.000-1.030) 12/11/24 21:00 Urine Protein Trace (Negative) H 12/11/24 21:00 Urine Glucose (UA) Negative (Negative) 12/11/24 21:00 Urine Ketones 3+ (Negative) H 12/11/24 21:00 Urine Blood Negative (Negative) 12/11/24 21:00 Urine Nitrite Negative (Negative) 12/11/24 21:00 Urine Bilirubin 3+ (Negative) H 12/11/24 21:00 Urine Urobilinogen Negative (Negative) 12/11/24 21:00 Ur Leukocyte Esterase Trace (Negative) H 12/11/24 21:00 Urine WBC (Auto) 0-5 /hpf (0-5) 12/11/24 21:00 Urine RBC (Auto) 0-2 /hpf (0-2) 12/11/24 21:00 U Hyaline Cast (Auto) 0-2 /lpf (0-2) 12/11/24 21:00 U Epithel Cells (Auto) 3-5 /hpf (0-2) H 12/11/24 21:00 Urine Bacteria (Auto) 1+ (None Seen) H 12/11/24 21:00 Urine Comment 12/11/24 21:00 Impressions Obstetrics Ultrasound 12/11/24 19:05 Exam(s): US OB LIMITED EXAM: US , Limited CLINICAL HISTORY: Reason for exam: pain. TECHNIQUE: Real-time limited ultrasound of the maternal uterus with image documentation. COMPARISON: No relevant prior studies available. FINDINGS: Gestational age: Estimated gestational age 22 weeks and 5 days. CECELIA: Estimated date of delivery by ultrasound is 04/11/2025. Heart rate: heart rate 148 bpm. Placenta: Anterior placenta. No previa or abruption. Cervix: Cervix closed measuring 7.5 cm. Adnexa: Normal appearance of the ovaries. No suspicious adnexal lesion or torsion. IMPRESSION: Single living intrauterine with estimated gestational age 22 weeks and 5 days. No acute abnormality identified. Electronically signed by: Miko Henning MD 12/11/24 21:11 PM Gallbladder Ultrasound 12/11/24 19:06 Exam(s): US GALLBLADDER EXAM: US Abdomen Limited, Right Upper Quadrant CLINICAL HISTORY: Reason for exam: pain. TECHNIQUE: Real-time ultrasound of the right upper quadrant with image documentation. COMPARISON: No relevant prior studies available. FINDINGS: Liver: Liver enlarged measuring 20 cm with diffusely increased echogenicity. No focal lesion identified. Gallbladder: Stones fill the gallbladder. No wall thickening or pericholecystic fluid. Negative Strange sign. Common bile duct: CBD measures 4 mm. Pancreas: Unremarkable as visualized. Right kidney: Unremarkable. No hydronephrosis. IMPRESSION: 1. Cholelithiasis without cholecystitis. 2. Hepatomegaly and hepatic steatosis. Electronically signed by: Miko Henning MD 12/11/24 21:10 PM
[2024-12-11] MEDS ORDERED: ONDANSETRON INJ 2 MG/ML 2 ML VIAL IV PRN (23:11)
[2024-12-11 23:44] LABS: INR 0.9 (0.9-1.1); Prothrombin Time 10.3 Seconds (9.0-12.0)
--- NOTE | 2024-12-12 02:49 | Magnetic Resonance Report ---
EXAM: MR MRCP CLINICAL HISTORY: abn lfts TECHNIQUE: Multiplanar/multisequence MRI of the upper abdomen with MRCP was performed without use of gadolinium. COMPARISON: none FINDINGS: The liver is enlarged in size, measuring 17.5cm in craniocaudal dimension The liver is of normal signal intensity without evidence of a hepatic mass. No evidence of intrahepatic biliary ductal dilatation. Common bile duct is normal in caliber. The gallbladder shows multiple intraluminal calculi of size 2-3mm. Normal wall thickening. No pericholecystic pathology. The adrenal glands demonstrate no gross mass. The pancreas is unremarkable. The kidneys demonstrate no evidence of contour-deforming mass lesion. Gravid uterus is noted. IMPRESSION: 1. Moderate hepatomegaly. 2. Choleithiasis with no evidence of cholecystitis. Electronically signed by Smith Arguello 12-12-2024 02:48 AM
[2024-12-12 08:05] LABS: Hematocrit (blood only) 33.8 % (37.0-47.0); Hemoglobin 11.4 g/dl (12.0-16.0); Immature Granulocytes # (auto) 0.22 K/uL (0.01-0.20); Immature Granulocytes % (auto) 2.3 %; Mean Corpuscular Hemoglobin 32.1 pg (25.0-34.0); Mean Corpuscular Volume 95.2 fL (80.0-100.0); Platelet Count 244 K/uL (130-400); RDW Standard Deviation 48.8 fL (36.4-46.3); Red Blood Count 3.55 M/uL (4.20-5.40); White Blood Count 9.52 K/ul (4.8-10.8)
[2024-12-12 08:23] LABS: Alanine Aminotransferase 190.0 U/L (7-52); Albumin Globulin Ratio 1.2 (0.9-2); Alkaline Phosphatase 120.0 U/L (34-104); Anion Gap 7.0 (3-11); Bilirubin,Total 1.7 mg/dl (0.2-1.0); Blood Urea Nitrogen 4.0 mg/dl (6-23); Calcium 8.5 mg/dl (8.6-10.3); Carbon Dioxide 24.0 mmol/L (21-32); Chloride 107.0 mmol/L (98-107); Creatinine Clr Calc Pharmacy 226.2 ml/min; Globulin 2.9 gm/dl (2.5-4.0); Glucose 77.0 mg/dl (70-99(Fasting)); Potassium 3.5 mmol/L (3.5-5.1); Sodium 138.0 mmol/L (136-145); Total Protein 6.3 gm/dl (6.0-8.3)
--- NOTE | 2024-12-12 12:14 | OB/GYN Consultation ---
Date of Consultation December 12, 2024 Assessment & Plan (1) with 22 completed weeks gestation: heart tones q shift follow up in office after discharged by medicine History of Present Illness Reason for Consultation: at 22.5 weeks with RUQ pain Requesting Physician: Dr. Brink Attending Physician: Isabel Brink MD History of Present Illness 29 F P1001 at 22.5 weeks admitted with acute onset of RUQ pain and vomiting last night at 22.5 weeks . History of prior for breech. Allergies Allergy/AdvReac Type Severity Reaction Status Date / Time No Known Allergies Allergy Verified 12/25/22 16:42 Home Medications Medication Instructions Recorded Confirmed Type escitalopram oxalate 20 mg tablet 20 mg PO QAM 12/11/24 12/11/24 History Patient History Medical History Breech presentation Anxiety History of COVID-19 09/2021 (home test)- congestion, cold, runny nose > resolved Surgical History History of open reduction and internal fixation (ORIF) procedure Left Capitellar Fracture Hx of wisdom tooth extraction Family History Other No known health problems Social History Smoking Status: Never smoker Second Hand Exposure: No; Do You Dip or Chew Tobacco: No; Tobacco Cessation Education Requested by Patient: No Hx Alcohol Use: No Hx Substance Use: No Preferred Language: Citizen Of [place] Communication Ability: Effective Systems Integration Manager Required: No Beliefs That Will Affect Care: None marital status: marital status details: Mahad Neri Current Living Situation: Spouse and Family current occupational status: employed 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 no rebound or guarding. abdomen gravid above U. prior scar noted. Musculoskeletal: Extremities: extremities normal to inspection Skin: no rashes, warm and dry Neurologic: patellar DTR's 2+ bilat, sensation intact Psychiatric: A+Ox3, euthymic affect Results & Data Vital Signs (Past 12 Hours) Vital Signs Temp Pulse Resp BP Pulse Ox O2 Del Method 12/12/24 08:11 36.8 C 88 18 111/64 98 Room Air 12/12/24 08:00 Room Air Laboratory Results 12/11/24 12/11/24 12/12/24 18:40 21:00 06:50 WBC 10.30 9.52 RBC 3.67 L 3.55 L Hgb 11.6 L 11.4 L Hct 34.4 L 33.8 L MCV 93.7 95.2 MCH 31.6 32.1 MCHC 33.7 33.7 RDW Std Deviation 47.4 H 48.8 H RDW Coeff of Tushar 14.2 14.1 Plt Count 262 244 MPV 10.4 10.8 Immature Gran % (Auto) 2.3 2.3 Neut % (Auto) 67.4 65.8 Lymph % (Auto) 23.4 23.5 [place] % (Auto) 5.8 6.6 Eos % (Auto) 0.8 1.5 Baso % (Auto) 0.3 0.3 Neut # (Auto) 6.94 H 6.26 Lymph # (Auto) 2.41 2.24 [place] # (Auto) 0.60 H 0.63 H Eos # (Auto) 0.08 0.14 Baso # (Auto) 0.03 0.03 Immature Gran # (Auto) 0.24 H 0.22 H Absolute Nucleated RBC 0.02 0.02 Nucleated RBC % (auto) 0.2 0.2 PT 10.3 INR 0.9 Sodium 138 138 Potassium 3.6 3.5 Chloride 106 107 Carbon Dioxide 24 24 Anion Gap 8 7 BUN 5 L 4 L Creatinine 0.62 0.44 L Est Cr Clr Drug Dosing 159.8 226.2 eGFR 122.78 133.36 BUN/Creatinine Ratio 8.1 L 9.1 L Glucose 83 77 Calcium 9.0 8.5 L Total Bilirubin 3.6 H 1.7 H D Direct Bilirubin 2.5 H AST 163 H 134 H ALT 204 H 190 H Alkaline Phosphatase 139 H 120 H Total Protein 6.9 6.3 Albumin 3.6 3.4 Globulin 3.3 2.9 Albumin/Globulin Ratio 1.1 1.2 Lipase 48 Urine Color Dark Yellow Urine Appearance Clear Urine pH 6.5 Ur Specific [place] 1.020 Urine Protein Trace H Urine Glucose (UA) Negative Urine Ketones 3+ H Urine Blood Negative Urine Nitrite Negative Urine Bilirubin 3+ H Urine Urobilinogen Negative Ur Leukocyte Esterase Trace H Urine WBC (Auto) 0-5 Urine RBC (Auto) 0-2 U Hyaline Cast (Auto) 0-2 U Epithel Cells (Auto) 3-5 H Urine Bacteria (Auto) 1+ H Urine Comment Diagnostic Findings Gallstones filling gallbladder. no cholecystitis.
[2024-12-12] MEDS: ACETAMINOPHEN 500 MG TAB PO PRN (12:45)
--- NOTE | 2024-12-12 12:59 | Hospitalist Progress Note ---
Date of Service December 12, 2024 Assessment & Plan (1) Right upper quadrant abdominal pain: Plan: 29 year old woman with h/o anxiety, mood, currently 22 weeks who presents with RUQ pain, nausea and voting that started on 12/10/24 RUQ pain Transaminitis Cholelithiasis RUQ USS showed cholelithiasis without cholecystitis, hepatomegaly and hepatic steatosis MRCP showed cholethiasis without cholecystitis, moderate hepatomegaly. Normal caliber CBD Pain likely due to gall stones. Cannot rule out passed gallstones TBil improved from 3.6 to 1.7 today. Other liver enzymes still elevated but mildy improved compared to yesterday Will continue to monitor Trend LFT Will advance diet as patient will like more solid food. Advanced from clears to low fat diet. Will monitor tolerance Continue tylenol prn Follow up GI eval and recs Anemia of Currently 22 weeks OBs on board Mood disorder Stable Code status- Full DVT ppx- Ambulate I spent a total of 50 minutes coordinating, documenting and providing care for this patient excluding time spent in performance of separately billed services Admission and Anticipated Discharge Date Admission Date: December 11, 2024 Subjective Patient seen and examined Reports nausea and vomiting have resolved Reports some current RUQ abd pain after lunch this afternoon but not as bad as it was at home Denied all other complaints on ROS Physical Exam Constitutional: + well hydrated; no acute distress Eyes: PERRL, conjunctivae normal, anicteric sclerae ENMT: external ear and nose normal, oropharynx normal Respiratory: normal respiratory effort, lungs clear to auscultation Cardiovascular: Rate/Rhythm: regular rate and regular rhythm Gastrointestinal (Abdomen): Gravid abdomen, +mild RUQ, soft, normal bowel sounds Musculoskeletal: No pedal edema Neurologic: PERRL, EOMI, accommodation nl, no face palsy, no dysarthria Psychiatric: A+Ox3, euthymic affect Results & Data Results & Data Vital Signs (Past 12 Hours) Vital Signs Temp Pulse Resp BP Pulse Ox O2 Del Method 12/12/24 08:11 36.8 C 88 18 111/64 98 Room Air 12/12/24 08:00 Room Air Laboratory Results Abnormal lab results 12/11/24 12/11/24 12/12/24 Range/Units 18:40 21:00 06:50 RBC 3.67 L 3.55 L (4.20-5.40) M/uL Hgb 11.6 L 11.4 L (12.0-16.0) g/dl Hct 34.4 L 33.8 L (37.0-47.0) % RDW Std Deviation 47.4 H 48.8 H (36.4-46.3) fL Neut # (Auto) 6.94 H (1.40-6.50) K/uL [place] # (Auto) 0.60 H 0.63 H (0.11-0.59) K/uL Immature Gran # (Auto) 0.24 H 0.22 H (0.01-0.20) K/uL BUN 5 L 4 L (6-23) mg/dl Creatinine 0.44 L (0.6-1.2) mg/dl BUN/Creatinine Ratio 8.1 L 9.1 L (10-20) Calcium 8.5 L (8.6-10.3) mg/dl Total Bilirubin 3.6 H 1.7 H D (0.2-1.0) mg/dl Direct Bilirubin 2.5 H (0-0.2) mg/dl AST 163 H 134 H (13-39) U/L ALT 204 H 190 H (7-52) U/L Alkaline Phosphatase 139 H 120 H (34-104) U/L Urine Protein Trace H (Negative) Urine Ketones 3+ H (Negative) Urine Bilirubin 3+ H (Negative) Ur Leukocyte Esterase Trace H (Negative) U Epithel Cells (Auto) 3-5 H (0-2) /hpf Urine Bacteria (Auto) 1+ H (None Seen)
--- NOTE | 2024-12-12 13:15 | Gastrointestinal Consultation ---
Date of Consultation December 12, 2024 Assessment & Plan (1) Abnormal LFTs: Patient is a 29 yo female with RUQ pain and elevated LFTs who happens to be 22 weeks currently. This morning, her LFTs are declining and there is no evidence of obstruction on MRCP. Discussed with Dr. Ahn. -Continue to trend LFTs -Will need eventual surgical consult given concern for gallstones as potentially leading to this episode -Acute hep panel ordered -Continue to monitor platelets -Discussed low fat diet, but patient would benefit from food preparation worker consult to discuss further Supervising Physician Co-Signing Physician Notes I saw and examined this patient with our nurse practitioner and agree with her assessment and plan. Clinical picture consistent with biliary colic. Abnormal liver enzymes atypical for this stage of . Normal platelet count excludes hellp syndrome, normal blood pressure makes preeclampsia less likely doubt liver disease or . Possible transient choledocholithiasis which is passed with MRCP negative for choledocholithiasis. Continue to monitor her physical exam and symptoms. I believe she should follow-up with surgery either during his hospital stay or as an outpatient sooner than later. Clinically she has improved with no abdominal pain. History of Present Illness Reason for Consultation: "abn lfts" Attending Physician: Isabel Brink MD History of Present Illness Patient is a 29 yo female who is currently 22 weeks who presented for RUQ abdominal pain. She notes that Sunday she developed RUQ aching pain with nausea and vomiting. She had eaten [employer] prior to the onset of symptoms. She spent that evening with intermittent pain and discomfort. No fever or chills. No diarrhea. She notes the pain continued after eating a salad with ranch dressing so she decided to call her OB who directed her to the ED. She had an abdominal US that indicated cholelithiasis without cholecystitis, hepatomegaly, & hepatic steatosis. T bili was 3.6, AST 163, ALT 204, and Alk phos 139. MRCP imaging did not suggest any obstructive biliary processes. Patient is feeling better at present. LFTs did improve this AM: T bili 1.7, AST 134, ALT 190, Alk phos 120. Platelets unremarkable. Allergies Allergy/AdvReac Type Severity Reaction Status Date / Time No Known Allergies Allergy Verified 12/25/22 16:42 Home Medications Medication Instructions Recorded Confirmed Type escitalopram oxalate 20 mg tablet 20 mg PO QAM 07/10/25 07/10/25 History Patient History Medical History Breech presentation Anxiety History of COVID-19 09/2021 (home test)- congestion, cold, runny nose > resolved Surgical History History of open reduction and internal fixation (ORIF) procedure Left Capitellar Fracture Hx of wisdom tooth extraction Family History Other No known health problems Social History Smoking Status: Never smoker Second Hand Exposure: No; Do You Dip or Chew Tobacco: No; Tobacco Cessation Education Requested by Patient: No Hx Alcohol Use: No Hx Substance Use: No Preferred Language: Lithuanian Communication Ability: Effective Mixer Driver Required: No Beliefs That Will Affect Care: None marital status: marital status details: Mahad Neri Current Living Situation: Spouse and Family current occupational status: 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 Other Information That Helps Us Care for You: No Feels Safe at Home: Yes Safety Concerns: Feels Safe At This Time Assistive Devices: None Review of Systems Constitutional: no fever and no chills Respiratory: no cough and no dyspnea Cardiovascular: no chest pain Gastrointestinal: + abdominal pain (improved) and + vomiti ng; no diarrhea/loose stools Psychiatric: no problem reported Physical Exam Constitutional: well developed Respiratory: normal respiratory effort Cardiovascular: Rate/Rhythm: regular rate Gastrointestinal (Abdomen): gravid abdomen Psychiatric: Orientation: alert and oriented x 3 Results & Data Vital Signs (Past 12 Hours) Vital Signs Temp Pulse Resp BP Pulse Ox O2 Del Method 12/12/24 08:11 36.8 C 88 18 111/64 98 Room Air 12/12/24 08:00 Room Air PG Care Time/CCT Total # of Minutes Spent Total Time Spent with Patient: Total time spent is greater than 50% in coordination of care (as documented) at patient's floor/unit and/or counseling patient: Coding Level of Care Code 69152 INT INP/OBS CARE 2/55MIN Diagnoses Abnormal LFTs R79.89
[2024-12-12 14:26] LABS: Hep B Surface Ag with confirm Negative (Negative)
[2024-12-12 14:31] LABS: Hep C Ab Rflx HepCQuant RNA Negative (Negative)
[2024-12-12 19:39] VITALS: O2SAT 98
[2024-12-13 06:41] LABS: Hematocrit (blood only) 35.1 % (37.0-47.0); Hemoglobin 11.6 g/dl (12.0-16.0); Mean Corpuscular Hemoglobin 31.6 pg (25.0-34.0); Mean Corpuscular Volume 95.6 fL (80.0-100.0); Platelet Count 254 K/uL (130-400); RDW Standard Deviation 49.9 fL (36.4-46.3); Red Blood Count 3.67 M/uL (4.20-5.40); White Blood Count 10.23 K/ul (4.8-10.8)
[2024-12-13 07:09] LABS: Alanine Aminotransferase 240.0 U/L (7-52); Albumin Globulin Ratio 1.1 (0.9-2); Alkaline Phosphatase 128.0 U/L (34-104); Anion Gap 6.0 (3-11); Bilirubin,Total 1.3 mg/dl (0.2-1.0); Blood Urea Nitrogen 5.0 mg/dl (6-23); Calcium 8.8 mg/dl (8.6-10.3); Carbon Dioxide 25.0 mmol/L (21-32); Chloride 108.0 mmol/L (98-107); Creatinine Clr Calc Pharmacy 160.6 ml/min; Globulin 3.0 gm/dl (2.5-4.0); Glucose 81.0 mg/dl (70-99(Fasting)); Potassium 4.4 mmol/L (3.5-5.1); Sodium 139.0 mmol/L (136-145); Total Protein 6.4 gm/dl (6.0-8.3)
[2024-12-13 07:12] VITALS: BP 99/64; PULSE 71; RESP 16; TEMP 97.9
--- NOTE | 2024-12-13 09:29 | Surgery Consultation ---
Date of Consultation December 13, 2024 Assessment & Plan (1) Gallstones: No evidence of acute cholecystitis. Her bilirubin is coming down from 1.7to 1.3. Imaging does not reveal any evidence of common bile duct stones. No urgent indication for surgical intervention. I would recommend she have her gallbladder removed electively after her . Okay from our standpoint for discharge. (2) Abnormal LFTs: (3) with 22 completed weeks gestation: History of Present Illness Attending Physician: Montez Lima MD History of Present Illness Antoinette is a pleasant 29-year-old female currently 22 weeks . This is her second . She began having upper abdominal pain and nausea on . She presented to the emergency room yesterday and found to have gal lstones as well as elevated LFTs. She is currently feeling better. No pain or nausea. Allergies Allergy/AdvReac Type Severity Reaction Status Date / Time No Known Allergies Allergy Verified 12/25/22 16:42 Home Medications Medication Instructions Recorded Confirmed Type escitalopram oxalate 20 mg tablet 20 mg PO QAM 12/11/24 12/11/24 History Patient History Medical History Breech presentation Anxiety History of COVID-19 09/2021 (home test)- congestion, cold, runny nose > resolved Surgical History History of open reduction and internal fixation (ORIF) procedure Left Capitellar Fracture Hx of wisdom tooth extraction Family History Other No known health problems Social History Smoking Status: Never smoker Second Hand Exposure: No; Do You Dip or Chew Tobacco: No; Tobacco Cessation Education Requested by Patient: No Hx Alcohol Use: No Hx Substance Use: No Preferred Language: Amharic Communication Ability: Effective Knitter Helper Required: No Beliefs That Will Affect Care: None marital status: marital status details: Mahad Neri Current Living Situation: Spouse and Family current occupational status: employed 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 Other Information That Helps Us Care for You: No Feels Safe at Home: Yes Safety Concerns: Feels Safe At This Time Assistive Devices: None Physical Exam Constitutional: WD/WN, vitals as above no acute distress and not ill appearing Eyes: PERRL, conjunctivae normal, anicteric sclerae EOM intact bilaterally ENMT: external ear and nose normal, oropharynx normal Ears: no hearing impairment Neck: trachea midline, no thyromegaly Respiratory: normal respiratory effort; no respiratory distress and does not use accessory muscles Cardiovascular: Rate/Rhythm: regular rate and regular rhythm Gastrointestinal (Abdomen): normal bowel sounds, soft, nontender, no hepatosplenomegaly Skin: no rashes, warm and dry Psychiatric: Orientation: alert, oriented x 3 and cooperative Results & Data Vital Signs (Past 12 Hours) Vital Signs Temp Pulse Resp BP Pulse Ox O2 Del Method 12/13/24 07:11 36.6 C 71 16 99/64 L 98 Room Air PG Care Time/CCT Total # of Minutes Spent Total Time Spent with Patient: Total time spent is greater than 50% in coordination of care (as documented) at patient's floor/unit and/or counseling patient: Coding Level of Care Code 19887 IN/OBS CONSULT LVL 2,35M Diagnoses Gallstones K80.20 Abnormal LFTs R79.89 with 22 completed weeks gestation Z3A.22
--- NOTE | 2024-12-13 09:45 | Obstetrical Progress Note ---
Date of Service December 13, 2024 Assessment & Plan Admission and Anticipated Discharge Date Admission Date: December 12, 2024 Subjective Patient is seen and examined. She feels well, no complaints she is hoping to be discharged today. She denies abdominal pain, nausea vomiting, pelvic cramping, uterine contractions, leakage of fluid, vaginal bleeding, vaginal spotting, she denies fever or chills, difficulty with urination. She reports good movements. She had 2 regular meals since yesterday and she did not have pain nor nausea. She has been using the bathroom normally. Vital Signs Temp Pulse Resp BP Pulse Ox O2 Del Method 12/13/24 07:11 36.6 C 71 16 99/64 L 98 Room Air Lab Results 12/11/24 12/11/24 12/12/24 Range/Units 18:40 21:00 06:50 WBC 10.30 9.52 (4.8-10.8) K/ul RBC 3.67 L 3.55 L (4.20-5.40) M/uL Hgb 11.6 L 11.4 L (12.0-16.0) g/dl Hct 34.4 L 33.8 L (37.0-47.0) % MCV 93.7 95.2 (80.0-100.0) fL MCH 31.6 32.1 (25.0-34.0) pg MCHC 33.7 33.7 (32.0-36.0) g/dL RDW Std Deviation 47.4 H 48.8 H (36.4-46.3) fL RDW Coeff of Tushar 14.2 14.1 (11.5-14.5) % Plt Count 262 244 (130-400) K/uL MPV 10.4 10.8 (9.4-12.4) fL Immature Gran % (Auto) 2.3 2.3 % Neut % (Auto) 67.4 65.8 % Lymph % (Auto) 23.4 23.5 % Stoddard % (Auto) 5.8 6.6 % Eos % (Auto) 0.8 1.5 % Baso % (Auto) 0.3 0.3 % Neut # (Auto) 6.94 H 6.26 (1.40-6.50) K/uL Lymph # (Auto) 2.41 2.24 (1.20-3.40) K/uL Stoddard # (Auto) 0.60 H 0.63 H (0.11-0.59) K/uL Eos # (Auto) 0.08 0.14 (0.00-0.50) K/uL Baso # (Auto) 0.03 0.03 (0.00-0.20) K/uL Immature Gran # (Auto) 0.24 H 0.22 H (0.01-0.20) K/uL Absolute Nucleated RBC 0.02 0.02 (0.00-0.12) K/uL Nucleated RBC % (auto) 0.2 0.2 % PT 10.3 (9.0-12.0) Seconds INR 0.9 (0.9-1.1) Sodium 138 138 (136-145) mmol/L Potassium 3.6 3.5 (3.5-5.1) mmol/L Chloride 106 107 (98-107) mmol/L Carbon Dioxide 24 24 (21-32) mmol/L Anion Gap 8 7 (3-11) BUN 5 L 4 L (6-23) mg/dl Creatinine 0.62 0.44 L (0.6-1.2) mg/dl Est Cr Clr Drug Dosing 159.8 226.2 ml/min eGFR 122.78 133.36 BUN/Creatinine Ratio 8.1 L 9.1 L (10-20) Glucose 83 77 (70-99(Fasting)) mg/dl Calcium 9.0 8.5 L (8.6-10.3) mg/dl Total Bilirubin 3.6 H 1.7 H D (0.2-1.0) mg/dl Direct Bilirubin 2.5 H (0-0.2) mg/dl AST 163 H 134 H (13-39) U/L ALT 204 H 190 H (7-52) U/L Alkaline Phosphatase 139 H 120 H (34-104) U/L Total Protein 6.9 6.3 (6.0-8.3) gm/dl Albumin 3.6 3.4 (3.4-5.0) gm/dl Globulin 3.3 2.9 (2.5-4.0) gm/dl Albumin/Globulin Ratio 1.1 1.2 (0.9-2) Lipase 48 (11-82) U/L Urine Color Dark Yellow Urine Appearance Clear (Clear) Urine pH 6.5 (4.5-7.5) Ur Specific Kiefer 1.020 (1.000-1.030) Urine Protein Trace H (Negative) Urine Glucose (UA) Negative (Negative) Urine Ketones 3+ H (Negative) Urine Blood Negative (Negative) Urine Nitrite Negative (Negative) Urine Bilirubin 3+ H (Negative) Urine Urobilinogen Negative (Negative) Ur Leukocyte Esterase Trace H (Negative) Urine WBC (Auto) 0-5 (0-5) /hpf Urine RBC (Auto) 0-2 (0-2) /hpf U Hyaline Cast (Auto) 0-2 (0-2) /lpf U Epithel Cells (Auto) 3-5 H (0-2) /hpf Urine Bacteria (Auto) 1+ H (None Seen) Urine Comment Hep Bs Antigen (Negative) Hepatitis C Antibody (Negative) 12/12/24 12/13/24 Range/Units 13:20 05:46 WBC 10.23 (4.8-10.8) K/ul RBC 3.67 L (4.20-5.40) M/uL Hgb 11.6 L (12.0-16.0) g/dl Hct 35.1 L (37.0-47.0) % MCV 95.6 (80.0-100.0) fL MCH 31.6 (25.0-34.0) pg MCHC 33.0 (32.0-36.0) g/dL RDW Std Deviation 49.9 H (36.4-46.3) fL RDW Coeff of Tushar 14.3 (11.5-14.5) % Plt Count 254 (130-400) K/uL MPV 10.7 (9.4-12.4) fL Immature Gran % (Auto) % Neut % (Auto) % Lymph % (Auto) % Stoddard % (Auto) % Eos % (Auto) % Baso % (Auto) % Neut # (Auto) (1.40-6.50) K/uL Lymph # (Auto) (1.20-3.40) K/uL Stoddard # (Auto) (0.11-0.59) K/uL Eos # (Auto) (0.00-0.50) K/uL Baso # (Auto) (0.00-0.20) K/uL Immature Gran # (Auto) (0.01-0.20) K/uL Absolute Nucleated RBC 0.04 (0.00-0.12) K/uL Nucleated RBC % (auto) 0.4 % PT (9.0-12.0) Seconds INR (0.9-1.1) Sodium 139 (136-145) mmol/L Potassium 4.4 D (3.5-5.1) mmol/L Chloride 108 H (98-107) mmol/L Carbon Dioxide 25 (21-32) mmol/L Anion Gap 6 (3-11) BUN 5 L (6-23) mg/dl Creatinine 0.62 (0.6-1.2) mg/dl Est Cr Clr Drug Dosing 160.6 ml/min eGFR 122.78 BUN/Creatinine Ratio 8.1 L (10-20) Glucose 81 (70-99(Fasting)) mg/dl Calcium 8.8 (8.6-10.3) mg/dl Total Bilirubin 1.3 H (0.2-1.0) mg/dl Direct Bilirubin (0-0.2) mg/dl AST 158 H (13-39) U/L ALT 240 H (7-52) U/L Alkaline Phosphatase 128 H (34-104) U/L Total Protein 6.4 (6.0-8.3) gm/dl Albumin 3.4 (3.4-5.0) gm/dl Globulin 3.0 (2.5-4.0) gm/dl Albumin/Globulin Ratio 1.1 (0.9-2) Lipase (11-82) U/L Urine Color Urine Appearance (Clear) Urine pH (4.5-7.5) Ur Specific Kiefer (1.000-1.030) Urine Protein (Negative) Urine Glucose (UA) (Negative) Urine Ketones (Negative) Urine Blood (Negative) Urine Nitrite (Negative) Urine Bilirubin (Negative) Urine Urobilinogen (Negative) Ur Leukocyte Esterase (Negative) Urine WBC (Auto) (0-5) /hpf Urine RBC (Auto) (0-2) /hpf U Hyaline Cast (Auto) (0-2) /lpf U Epithel Cells (Auto) (0-2) /hpf Urine Bacteria (Auto) (None Seen) Urine Comment Hep Bs Antigen Negative (Negative) Hepatitis C Antibody Negative (Negative) heart rate 130s with bedside Doppler. Audible kicks and movements noted assessment and plan, 31-year-old -0-0-1 at 22+ weeks admitted with right upper quadrant abdominal pain, elevated liver enzymes, bilirubin, fatty/enlarged liver, cholelithiasis Vital signs stable afebrile, heart rate reassuring, No signs and symptoms of labor, no signs or symptoms of help syndrome, Bilirubin has improved but your enzymes still elevated clinically improved with no pain no nausea vomiting with regular food intake, Plan per medicine/GI team, Continue to monitor closely, Follow-up in office this week for OB ultrasound, discussed when to call, all questions were answered. Results & Data Vital Signs (Past 12 Hours) Vital Signs Temp Pulse Resp BP Pulse Ox O2 Del Method 12/13/24 07:11 36.6 C 71 16 99/64 L 98 Room Air
[2024-12-13] MEDS: PRENATAL VITAMIN 1 TAB PO SCH (09:56)
[2024-12-13] MEDS ORDERED: ONDANSETRON 4 MG OD TAB PO PRN (11:10)
[2024-12-13 13:17] LABS: Hepatitis A Antibody IgM NON-REACTIVE (NON-REACTIVE); Hepatitis B Core Antibody IgM NON-REACTIVE (NON-REACTIVE)
--- NOTE | 2024-12-13 15:16 | Discharge Summary ---
Date of Service December 13, 2024 Admission HPI Per Admitting Provider History obtained from patient, family, and records. Medical history significant for anxiety/mood disorder, (currently 22 weeks AOG). Last confinement January 2023 for breech status post CS. Yesterday, patient experienced achy right upper quadrant pain with nausea emesis following a meal comprising of cheeseburger and chicken nuggets from the local [employer]. Intermittent symptoms overnight. No fever, no chills. No prior episodes. Denies chest pain, SOB. Denies inordinate Tylenol intake. Outpatient OB provider recommended avoiding fatty food intake, outpatient RUQ ultrasound. Patient directed to ER due to worsening symptoms. 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 Admission Exam Per Admitting Provider GENERAL: Comfortable, pleasant, morbidly obese, no respiratory distress SKIN: Normal color, warm HEENT: Driscoll palpebral conjunctivae, no ptosis, dry buccal mucosa NECK : Supple, no tenderness CHEST : CTA, no tenderness HEART : RRR, no obvious murmurs ABDOMEN: distention, right upper quadrant tenderness EXTREMITIES : Bilateral LE swelling without LE tenderness, palpable pulses, no other conspicuous deformities noted NEUROLOGIC : Coherent, no facial asymmetry, no other gross focality Principal Diagnosis RUQ pain Transaminitis Cholelithiasis Discharge Exam Constitutional: + well hydrated; no acute distress Eyes: PERRL, conjunctivae normal, anicteric sclerae ENMT: external ear and nose normal, oropharynx normal Respiratory: normal respiratory effort, lungs clear to auscultation Cardiovascular: Rate/Rhythm: regular rate and regular rhythm Gastrointestinal (Abdomen): Gravid abdomen, +mild RUQ, soft, normal bowel sounds Musculoskeletal: No pedal edema Neurologic: PERRL, EOMI, accommodation nl, no face palsy, no dysarthria Psychiatric: A+Ox3, euthymic affect Discharge Data Allergies Allergy/AdvReac Type Severity Reaction Status Date / Time No Known Allergies Allergy Verified 12/25/22 16:42 Consultations 12/11/24 22:59 ED Decision to Admit Stat 12/11/24 23:46 Consult Gastroenterology Routine Consult Obstetrics Routine 12/13/24 08:48 Consult General Surgery Routine Ordered Studies 12/11/24 19:05 US OB limited Stat 12/11/24 19:06 US gallbladder Stat 12/12/24 01:00 MR MRCP Stat Hospital Course (1) Right upper quadrant abdominal pain: Per prior attending with addendum: 29 year old woman with h/o anxiety, mood, currently 22 weeks who presents with RUQ pain, nausea and voting that started on 12/10/24 RUQ pain Transaminitis Cholelithiasis RUQ USS showed cholelithiasis without cholecystitis, hepatomegaly and hepatic steatosis MRCP showed cholethiasis without cholecystitis, moderate hepatomegaly. Normal caliber CBD Pain likely due to gall stones. Cannot rule out passed gallstones TBil improved from 3.6 to 1.7 today. Other liver enzymes still elevated but mildy improved compared to yesterday Will continue to monitor Trend LFT Will advance diet as patient will like more solid food. Advanced from clears to low fat diet. Will monitor tolerance Continue tylenol prn Follow up GI eval and recs Anemia of Currently 22 weeks OBs on board Mood disorder Stable Code status- Full DVT ppx- Ambulate Addendum 12/13/2024: Patient was seen and examined at bedside as a follow-up of cholelithiasis and transaminitis. GI evaluated, possible transient choledocholithiasis which is passed with MRCP negative for choledocholithiasis. GI recommended general surgery evaluation. General surgery evaluated, follow-up as an outpatient, okay for discharge from their point of view. Patient overall with improvement of her nausea/vomiting/abdominal pain. Hepatitis panel neg. Had transient episode of abdominal pain in the morning with 1 emesis. Patient tolerated lunch very well, no further nausea/vomiting/abdominal pain. Patient feels better and anxious to go home. Patient is hemodynamically stable. Patient is being discharged home with following instructions at the point of discharge: Follow-up with your primary care physician within a week time and likely you will need labs CBC/CMP/magnesium/phosphorus. For your elevated liver enzymes and gallbladder stone, general surgery and GI physician evaluated you while in the hospital. You will need repeat liver function test in about a week time, coordinate with your PCP office to set up the test. Follow-up with general surgery as an outpatient for possible surgical removal of GB after delivery. Follow-up with your dining room supervisor in a week time upon discharge. Maintain low fat diet. Take your medications as prescribed. Please make sure that you are able to get your medications today by calling your pharmacy before you leave the hospital so that your treatment continuity is not broken. Home Health Attestation I certify that this patient is under my care and that I, or a physicians escrow assistant working with me, had a face to-face encounter that meets the home health [id number] encounter requirements with this patient. The encounter with the patient was in whole, or in part, for the following medical condition, which is the primary reason for home health care (list medical condition): I certify that, based on my findings, the following services are medically necessary home health services: My clinical findings support the need for the above services because: Further, I certify that my clinical findings support that this patient is homebound (i.e. absences from home require considerable and taxing effort and are for medical reasons or shinto services or infrequently or of short duration when for other reasons) because: Certification for Home Health Services: Based on the above findings, I certify that this patient is confined to the home and needs intermittent halfway care, physical therapy and/or speech therapy or continues to need occupational therapy. The patient is under my care, and I have initiated the establishment of the plan of care. This patient will be followed by a physician who will periodically review the plan of care. Total Time Total Time Spent Total Time Spent (In Minutes): 45 Discharge Plan Discharge Items Patient Disposition: Home - Self-Care Reason For Visit: ABD PAIN Discharge Diagnosis: RUQ pain Transaminitis Cholelithiasis Condition on Discharge: Good Activity: Resume your previous activity Non-emergency contact: Primary Care Provider Call non-emergency contact if: you have any medication questions and your symptoms worsen Follow-up/Referrals: Kalpesh Quiros DO [Surgeon] - (may call to schedule an appointment after your delivery) Aster Christina DO [Primary Care Provider] - Diet: Low Fat Addtl Attending Provider Instructions: Follow-up with your primary care physician within a week time and likely you will need labs CBC/CMP/magnesium/phosphorus. For your elevated liver enzymes and gallbladder stone, general surgery and GI physician evaluated you while in the hospital. You will need repeat liver function test in about a week time, coordinate with your PCP office to set up the test. Follow-up with general surgery as an outpatient for possible surgical removal of GB after delivery. Follow-up with your dining room supervisor in a week time upon discharge. Maintain low fat diet. Take your medications as prescribed. Please make sure that you are able to get your medications today by calling your pharmacy before you leave the hospital so that your treatment continuity is not broken. Pending Studies at Discharge: No Stand-Alone Forms: [facility] Cess[facility] Medications and DC Order Prescriptions: New ferrous sulfate 325 mg (65 mg iron) Tablet,Delayed Release (Dr/Ec) 325 mg PO HS Qty: 30 0RF ondansetron 4 mg Tablet,Disintegrating 4 mg PO BID PRN (Reason: nausea and vomiting) Qty: 10 0RF Vitamin 27 mg iron- 800 mcg Tablet 1 tab PO QAM Qty: 30 0RF Continued escitalopram oxalate 20 mg tablet 20 mg PO QAM Discharge Orders: Discharge Order (Routine); Ordered 12/13/24 Ordered By: Montez Lima Admission Data Admit Date/Time: 12/12/24 12:59 Attending Provider: Montez Lima Admit Provider: Emanuel Whitaker Primary Care Provider: Aster Christina Other Providers: Emanuel Whitaker; Patrick Ahn I; Carloz Brenner; Kalpesh Quiros
[2024-12-13] MEDS ORDERED: FERROUS SULFATE 325 MG TAB PO SCH (21:00)
== END 2024-12-13 15:58 | disposition home or self-care (01) | DRG 833 ==
LOC: ED 18:17 → 3N 18:17 → SUATTDRO 12-12 12:59

== ENCOUNTER 2025-04-08 05:58 | Inpatient (IN) ==
--- NOTE | 2025-03-30 12:48 | Anesthesiology Consultation ---
Date of Service March 30, 2025 Assessment & Plan (1) Encounter for pre-operative examination: - Per senior software project manager on 03/30/25: No known infectious disease contacts, current infectious disease symptoms in past 10 days or COVID positive test result in the past 30 days. Chart Review Chart Review: data entry specialist initiated History Surgery Operation Date: 04/08/25 07:30 Proposed Procedures p Repeat Section in LD - Leopoldo De La Rosa MD s Post Tubal Ligation Labor & Deliv - Leopoldo De La Rosa MD Height/Weight Height: 5 ft 2 in Weight: 121.563 kg Allergies Allergy/AdvReac Type Severity Reaction Status Date / Time No Known Allergies Allergy Verified 03/30/25 11:52 Medications Home Medications Medication Instructions Recorded Confirmed Last Taken escitalopram oxalate 20 mg tablet 20 mg PO QAM 12/11/24 03/30/25 Unknown ferrous sulfate 325 mg (65 mg 325 mg PO HS #30 tabs 12/13/24 03/30/25 Unknown iron) tablet,delayed release vits no.124-ferrous fum 1 tab PO QAM #30 tabs 12/13/24 03/30/25 Unknown 27 mg iron-folic acid 800 mcg tablet ( Vitamin) Past Medical History Medical History (Updated 03/30/25 @ 12:47 by Brianna Hwang PA-C) Anxiety History of COVID-19 09/2021 (home test)- congestion, cold, runny nose > resolved Past Family History Family History Other No known health problems Past Surgical History Surgical History (Updated 03/30/25 @ 12:47 by Brianna Hwang PA-C) History of section (2022) History of cholecystectomy (12/2024) History of open reduction and internal fixation (ORIF) procedure (11/2021) Left Capitellar Fracture Hx of wisdom tooth extraction Social History Smoking Status: Never smoker Do You Dip or Chew Tobacco: No Hx Alcohol Use: No Alcohol type: hard liquor alcohol intake frequency: holidays/special occasions only Hx Substance Use: No substance use type: does not use
[2025-04-08] MEDS ORDERED: DEXAMETHASONE SOD INJ 4 MG/ML VIAL ONE (06:16)
[2025-04-08] MEDS ORDERED: MoRPHine SULFATE PF 1 MG/ML 10 ML AMP/VIAL ONE (06:16)
[2025-04-08] MEDS ORDERED: ONDANSETRON INJ 2 MG/ML 2 ML VIAL ONE (06:16)
[2025-04-08] MEDS ORDERED: OXYTOCIN 10 UNITS/ML VIAL ONE ×2 (06:16→09:01)
[2025-04-08] MEDS ORDERED: SODIUM CHLORIDE 0.9% 100 ML IV PRN (06:37)
[2025-04-08] MEDS: LACTATED RINGER'S 1,000 ML IV SCH ×2 (06:43→07:52)
[2025-04-08 06:44] LABS: Hematocrit (blood only) 38.8 % (37.0-47.0); Hemoglobin 13.3 g/dl (12.0-16.0); Mean Corpuscular Hemoglobin 32.1 pg (25.0-34.0); Mean Corpuscular Volume 93.7 fL (80.0-100.0); Platelet Count 209 K/uL (130-400); RDW Standard Deviation 45.0 fL (36.4-46.3); Red Blood Count 4.14 M/uL (4.20-5.40); White Blood Count 11.57 K/ul (4.8-10.8)
[2025-04-08] MEDS: ACETAMINOPHEN 500 MG TAB PO SCH (06:54)
[2025-04-08] MEDS: CITRIC ACID/SODIUM CITRATE 15 ML UDC PO SCH (07:53)
[2025-04-08] MEDS ORDERED: LACTATED RINGER'S 500 ML IV PRN (07:56)
[2025-04-08] MEDS ORDERED: NALBUPHINE HCL INJ 10 MG/ML AMP IV PRN (07:56)
[2025-04-08] MEDS ORDERED: NALOXONE HCL 1 MG in SODIUM CHLORIDE 0.9% 1,000 ML IV PRN (07:56)
[2025-04-08] MEDS ORDERED: PROMETHAZINE 6.25 MG/50.25 ML BAG IV PRN (07:56)
[2025-04-08] MEDS ORDERED: NALOXONE HCL 0.4 MG/1 ML VIAL/CARP IV PRN (07:56)
[2025-04-08] MEDS ORDERED: diphenhydrAMINE 50 MG/ML VIAL IV PRN (07:56)
[2025-04-08] MEDS ORDERED: NALOXONE HCL 0.08 MG in SYRINGE 1.8 ML IV PRN (07:56)
[2025-04-08] MEDS ORDERED: MoRPHine SULFATE PF 1 MG/ML 10 ML AMP/VIAL INT SPINAL ONE (07:56)
[2025-04-08] MEDS ORDERED: HYDROmorphone INJ 0.5 MG/0.5 ML SYR IV PRN (07:56)
[2025-04-08] MEDS ORDERED: DC INTRASPINAL MORPHINE SCH (08:00)
[2025-04-08] MEDS ORDERED: NO NARCOTICS OR SEDATIVES SCH (08:00)
[2025-04-08] MEDS ORDERED: SODIUM CHLORIDE 0.9% 1,000 ML IV SCH (08:00)
[2025-04-08] MEDS: ceFAZolin 3000MG 3,000 MG/72.5 ML BAG IV SCH (08:15)
[2025-04-08] MEDS: OXYTOCIN 10 UNITS/ML VIAL IM ONE (09:23)
[2025-04-08] MEDS ORDERED: ARISTA ABSORBABLE HEMOSTAT 3GM TOP ONE (09:24)
[2025-04-08] MEDS ORDERED: SENNA 8.6 MG TAB PO PRN (09:53)
[2025-04-08] MEDS ORDERED: BENZOCAINE 20% SPRY 85 APPLN/85 GM CAN EXT PRN (09:53)
[2025-04-08] MEDS ORDERED: MAGNESIUM HYDROXIDE SUSP 30 ML UDC PO PRN (09:53)
[2025-04-08] MEDS ORDERED: HYDROCORTISONE ACETATE 25 MG SUPP PR PRN (09:53)
[2025-04-08] MEDS ORDERED: DIPHTHER/TETAN/PERTUS Vaccine (Tdap, Adol/Adult) 0.5mL IM ONE (09:53)
[2025-04-08] MEDS ORDERED: CALCIUM CARBONATE 500 MG CHEWABLE TAB PO PRN (09:53)
[2025-04-08] MEDS ORDERED: LACTATED RINGER'S 1,000 ML IV SCH (10:00)
--- NOTE | 2025-04-08 10:05 | Operative Report ---
Post Operative Report Pre & Post Diagnosis Operation Date: 04/08/25 09:10 Pre-Op Diagnosis: 1. Term 2. Prior c/section desires repeat 3. desires tubal ligation Post-Op Diagnosis: Same Delivered live female Normal tubes and ovaries I identified the patient and participated in the time-out.: Yes Procedure Operation Date: 04/08/25 09:10 Actual Procedures p Repeat Section with the of a live female child at 0854 - Leopoldo De La Rosa MD s with Tubal Ligation - Leopoldo De La Rosa MD Surgeon Leopoldo De La Rosa MD Controller Mechanic [place] Estimated Blood Loss 496 (QBL) Findings Consistent with Post-Op Diagnosis Normal tubes and ovaries normal pelvis Specimens Placenta Meconium stained Anesthesia Type Spinal Complications None Indications Previous section for breech Desire for permanent sterilization Description of Procedure Patient was brought to the OR correctly identified by armband and conversation. Solorio catheter was inserted aseptically into the bladder. Compression stockings were applied. Spinal anesthesia was administered. She was placed on the supine position on the table. Lower abdomen was painted with an alcohol-based sterilizing solution. Patient was then draped in usual sterile fashion. Adequacy of the anesthesia was checked and found to be good. Timeout was taken to identify the patient. Incision was made through her previous Pfannenstiel scar. Incision was carried down to the anterior fascia by blunt and sharp dissection. Fascia was incised in the midline. This exposed the rectus muscle. Incision was then extended laterally to the patient's right and left area. Fascia was then dissected off the rectus muscle by blunt and sharp dissection. Recti muscles were in the midline exposing peritoneum which was carefully raised and entered. Good exposure to the lower uterine segment was obtained at this time. Palpation revealed a vertex presentation. An incision was made in the lower uterine segment. First incision was started with a knife. Then finished by rupturing the amniotic sac with a scissors. Meconium stained fluid was noted at this time. Effective's retractor was inserted to the to the head. With fundal pressure the head was delivered without difficulty. was suctioned through the mouth and the nose. Shoulders were delivered without difficulty. Cord was allowed to pulse for 1 full minute. Cord was then clamped and cut. Infant was attended by the recreation professor who is scrubbed and present at the time of delivery. Cord blood was taken. The placenta was removed manually. Uterine cavity was brought out through the abdominal incision. Uterine cavity was wiped clean with a sponge. Ring forceps were used to delineate the lower uterine defect. The muscular layer was approximated with a continuous interlocking suture of heavy chromic. The sutures were placed in a vertical fashion. Second layer of heavy-duty Vicryl was placed to bury the muscular approximation of the sutures were placed in a horizontal fashion. Following this another layer of running plain suture was used to approximate the peritoneal edges and complete the hemostatic process. Both fallopian tubes were then totally removed with a electro cauterizing device which remove the entire tube and fimbria on both the right and left side. Tubes were sent for pathological evaluation along with the placenta. Hemostasis at this point was excellent. Pelvis was cleansed of all blood clots and debris. Uterus tubes and ovaries were reinserted into the abdominal cavity. The suture line was then o bserved served. Little bit of slight oozing on the left side. Sarina was used to coat the suture line and finished hemostasis. Peritoneum was approximated with a continuous plain suture. Recti muscles were approximated interrupted [id number] suture of chromic. Fascia was closed with continuous interlocking suture of heavy Vicryl. Anchored at each angle of the defect and then run to the middle in an interlocking fashion. Subcu was then washed clean. Subcu was approximated with a running plain. Skin edges were approximated with staple clips. Patient tolerated procedure well left the OR in good condition. I attest to the content of the Intraoperative Record and any orders documented therein. Any exceptions are noted below. sales assistant institutional sales was necessary for adequate exposure and safe surgery
--- NOTE | 2025-04-08 10:06 | Operative Report ---
Post Operative Report Pre & Post Diagnosis Operation Date: 04/08/25 09:10 Pre-Op Diagnosis: 1. Term 2. Prior c/section desires repeat 3. desires tubal ligation Post-Op Diagnosis: Same I identified the patient and participated in the time-out.: Yes Procedure Operation Date: 04/08/25 09:10 Actual Procedures p Repeat Section with the of a live female child at 0854 - Leopoldo De La Rosa MD s with Tubal Ligation - Leopoldo De La Rosa MD Surgeon Leopoldo De La Rosa MD Quality Systems Engineer [place] Estimated Blood Loss 496 (QBL) Findings Consistent with Post-Op Diagnosis Normal pelvis Specimens Meconium stained placenta Large amount of amniotic fluid Drains None Anesthesia Type Spinal Complications None Indications Previous section. Desire for permanent sterilization. Description of Procedure Patient was brought to the OR table correctly identified by armband conversation. Perineum and vagina were painted with Betadine paint draped in usual sterile fashion. Solorio catheter was inserted aseptically into bladder to drainage. Lower abdomen was painted with an alcohol-based sterilizing solution. Was then draped in usual sterile fashion. Spinal anesthesia had been administered. The adequacy was tested found to be good. Pfannenstiel incision was made through previous scar. Incision was carried down to the anterior fascia by sharp dissection. Fascia was incised transversely the underlying muscle by blunt and sharp dissection. Recti muscle was in midline smooth peritoneum which was carefully raised and entered. A bladder retractor was used to retract the lower uterine segment. Lower uterine segment was entered by cutting with a knife and then entering with the scissors. Meconium stained amniotic fluid was noted at this time. Pectus retractor was applied to the head. With fundal pressure the infant's head was delivered without difficulty. Infant was suctioned through the mouth and the nose. Rest of the infant was delivered without difficulty. Cord was allowed to clamp pulse for 1 full minute cord was then clamped and cut. Cord blood was taken. Plac enta was removed from the uterus. Uterus tubes and ovaries were brought out through the incision. Uterine cavity was cleansed with a clean sponge. 10 units of fat was injected in the myometrium. Myometrium was approximated in 2 layers. Muscular layer was approximated with a running Chromic Gut suture. Fascial layer was approximated over this with a horizontal suture of heavy-duty Vicryl. A third layer was approximated with a continuous running plain which restored peritoneum. Tubes and ovaries inspected found to be normal. Cauterization mechanism was used to remove the entire tubes in both the right and left side. Tubes and placenta were sent for pathological evaluation. The pelvis was cleansed of all blood clots and debris. Uterus tubes and ovaries reinserted into abdominal cavity. Peritoneum was closed with a running chromic gut suture. Recti muscles approximately erupted [id number] suture chromic catgut fascia was closed with continuous interlocking locking suture of Vicryl on each side tied in the midline incision was cleansed and subcu was approximated with running plain skin edges were approximated with staple clips. I attest to the content of the Intraoperative Record and any orders documented therein. Any exceptions are noted below.
[2025-04-08] MEDS: KETOROLAC 30 MG/ML VIAL IV SCH (10:23)
[2025-04-08] MEDS: OXYTOCIN 20 UNITS/LR 1,002 ML IV SCH (11:50)
--- NOTE | 2025-04-08 14:27 | Anesthesiology Progress Note ---
Date of Service April 08, 2025 Anesthesia Post Procedure Vital Signs Vital Signs: Temp Pulse Pulse Resp BP BP Pulse Ox 04/08/25 12:35 04/08/25 12:35 16 96 04/08/25 12:35 98.1 F 76 16 105/68 96 04/08/25 12:11 78 120/71 04/08/25 12:08 72 97 04/08/25 12:03 73 98 04/08/25 12:00 98.2 F 20 04/08/25 11:58 83 109/77 99 04/08/25 11:53 87 99 04/08/25 11:48 73 107/64 98 04/08/25 11:43 85 98 04/08/25 11:38 99 04/08/25 11:38 70 04/08/25 11:38 77 118/60 04/08/25 11:33 70 98 04/08/25 11:31 20 04/08/25 11:28 75 108/65 99 04/08/25 11:23 73 98 04/08/25 11:19 68 96/52 L 04/08/25 11:18 71 99 04/08/25 11:13 76 98 04/08/25 11:08 73 104/68 99 04/08/25 11:03 71 99 04/08/25 11:00 20 04/08/25 11:00 20 04/08/25 10:59 72 110/62 04/08/25 10:58 72 99 04/08/25 10:53 71 98 04/08/25 10:50 20 04/08/25 10:48 69 108/55 L 98 04/08/25 10:43 73 98 04/08/25 10:40 20 04/08/25 10:38 71 102/60 98 04/08/25 10:33 69 98 04/08/25 10:30 20 04/08/25 10:28 64 95/55 L 97 04/08/25 10:24 72 92/53 L 04/08/25 10:23 71 97 04/08/25 10:20 20 04/08/25 10:18 78 98 04/08/25 10:13 52 L 98 04/08/25 10:10 20 04/08/25 10:10 52 L 122/57 L 04/08/25 10:08 58 L 99 04/08/25 10:03 59 L 99 04/08/25 10:00 97.9 F 16 04/08/25 09:58 99 04/08/25 09:58 63 04/08/25 09:58 58 L 108/57 L 04/08/25 07:03 98.2 F 70 18 121/58 L 04/08/25 06:16 97.9 F 82 18 114/71 Pulse Ox O2 Del Method O2 Del Method 04/08/25 12:35 96 Room Air 04/08/25 12:35 04/08/25 12:35 Room Air 04/08/25 12:11 04/08/25 12:08 04/08/25 12:03 04/08/25 12:00 04/08/25 11:58 04/08/25 11:53 04/08/25 11:48 04/08/25 11:43 04/08/25 11:38 04/08/25 11:38 04/08/25 11:38 04/08/25 11:33 04/08/25 11:31 04/08/25 11:28 04/08/25 11:23 04/08/25 11:19 04/08/25 11:18 04/08/25 11:13 04/08/25 11:08 04/08/25 11:03 04/08/25 11:00 04/08/25 11:00 04/08/25 10:59 04/08/25 10:58 04/08/25 10:53 04/08/25 10:50 04/08/25 10:48 04/08/25 10:43 04/08/25 10:40 04/08/25 10:38 04/08/25 10:33 04/08/25 10:30 04/08/25 10:28 04/08/25 10:24 04/08/25 10:23 04/08/25 10:20 04/08/25 10:18 04/08/25 10:13 04/08/25 10:10 04/08/25 10:10 04/08/25 10:08 04/08/25 10:03 04/08/25 10:00 04/08/25 09:58 04/08/25 09:58 04/08/25 09:58 04/08/25 07:03 11/05/25 06:16 Pain Intensity Lower Abdomen: Pain Intensity: 6 Transfer of Care Handoff Completed per policy Notes Mental Status: alert / awake / arousable and participated in evaluation Patient Amnestic to Procedure: No Nausea / Vomiting: adequately controlled Pain: adequately controlled Airway Patency, RR, SpO2: stable & adequate BP & HR: stable & adequate Hydration State: stable & adequate Neuraxial Anesthesia: was administered and sensory block is resolving Anesthetic Complications: no major complications apparent and Pt Satisfied with anesthetic care
[2025-04-08] MEDS: SIMETHICONE 80 MG CHEW PO SCH (16:10)
[2025-04-08] MEDS: ACETAMINOPHEN 325 MG TAB PO SCH (16:12)
[2025-04-08] MEDS: LACTATED RINGER'S 500 ML IV ONE (18:08)
[2025-04-08] MEDS: DOCUSATE SODIUM 100 MG CAP PO SCH (22:01)
[2025-04-09] MEDS ORDERED: ONDANSETRON INJ 2 MG/ML 2 ML VIAL IV PRN (01:57)
[2025-04-09] MEDS ORDERED: ZOLPIDEM TARTRATE 5 MG TAB PO PRN (01:57)
[2025-04-09] MEDS ORDERED: diphenhydrAMINE 50 MG/ML VIAL IV PRN (01:57)
[2025-04-09] MEDS ORDERED: diphenhydrAMINE Capsule 25 MG CAP PO PRN (01:57)
[2025-04-09] MEDS ORDERED: HYDROmorphone INJ 0.5 MG/0.5 ML SYR IV PRN (01:57)
[2025-04-09] MEDS ORDERED: PROMETHAZINE 12.5 MG/50.5 ML BAG IV PRN (01:57)
[2025-04-09 07:00] LABS: Hematocrit (blood only) 30.5 % (37.0-47.0); Hemoglobin 10.8 g/dl (12.0-16.0); Immature Granulocytes # (auto) 0.05 K/uL (0.01-0.20); Immature Granulocytes % (auto) 0.4 %; Mean Corpuscular Hemoglobin 32.8 pg (25.0-34.0); Mean Corpuscular Volume 92.7 fL (80.0-100.0); Platelet Count 146 K/uL (130-400); RDW Standard Deviation 44.3 fL (36.4-46.3); Red Blood Count 3.29 M/uL (4.20-5.40); White Blood Count 12.39 K/ul (4.8-10.8)
[2025-04-09] MEDS: FERROUS SULFATE 325 MG TAB PO SCH (07:36)
[2025-04-09] MEDS: PRENATAL VITAMIN 1 TAB PO SCH (07:36)
[2025-04-09] MEDS: ESCITALOPRAM OXALATE 20 MG TAB PO SCH (08:46)
--- NOTE | 2025-04-09 09:16 | Obstetrical Progress Note ---
Date of Service April 09, 2025 Assessment & Plan Admission and Anticipated Discharge Date Admission Date: April 08, 2025 Subjective Patient is seen and examined. She feels well, no complaints. Pain is under control with oral meds. Ambulating without dizziness Voiding without difficulty Tolerating regular diet with out N&V Flatus + BM neg Bleeding is minimal No fever/ chills/ CP/ SOB/ N&V/ Leg pain Bottle feeding without problems Vital Signs Temp Pulse Resp BP Pulse Ox Pulse Ox O2 Del Method 04/09/25 07:49 36.8 C 72 17 110/72 98 Room Air 04/09/25 03:49 36.7 C 87 16 111/77 98 Room Air 04/08/25 23:17 96 04/08/25 23:17 96 04/08/25 23:17 36.8 C 86 17 105/69 96 Room Air 04/08/25 22:00 16 99 O2 Del Method 04/09/25 07:49 04/09/25 03:49 04/08/25 23:17 Room Air 04/08/25 23:17 04/08/25 23:17 04/08/25 22:00 Lab Results 04/08/25 04/09/25 Range/Units 06:25 06:23 WBC 11.57 H 12.39 H (4.8-10.8) K/ul RBC 4.14 L 3.29 L (4.20-5.40) M/uL Hgb 13.3 10.8 L (12.0-16.0) g/dl Hct 38.8 30.5 L (37.0-47.0) % MCV 93.7 92.7 (80.0-100.0) fL MCH 32.1 32.8 (25.0-34.0) pg MCHC 34.3 35.4 (32.0-36.0) g/dL RDW Std Deviation 45.0 44.3 (36.4-46.3) fL RDW Coeff of Tushar 13.2 13.2 (11.5-14.5) % Plt Count 209 146 (130-400) K/uL MPV 11.1 11.2 (9.4-12.4) fL Immature Gran % (Auto) 0.4 % Neut % (Auto) 73.6 % Lymph % (Auto) 16.0 % [place] % (Auto) 9.3 % Eos % (Auto) 0.5 % Baso % (Auto) 0.2 % Neut # (Auto) 9.12 H (1.40-6.50) K/uL Lymph # (Auto) 1.98 (1.20-3.40) K/uL [place] # (Auto) 1.15 H (0.11-0.59) K/uL Eos # (Auto) 0.06 (0.00-0.50) K/uL Baso # (Auto) 0.03 (0.00-0.20) K/uL Immature Gran # (Auto) 0.05 (0.01-0.20) K/uL Treponema pallidum Ab Negative (Negative) Blood Type A Positive Antibody Screen NEGATIVE Crossmatch See Detail PE: General: Alert, orientedx3, NAD CVS: S1S2 RRR Lungs; CTAB Abd: soft, NT, ND, BS+, fundus firm, below Umbilicus Incision/ [place]: Clean, dry, intact Perineum intact, Lochia rubra minimal Ext; NT, no edema AP: 29 yo s/p RC Section, pod# 1 VSS Afebrile doing well Continue routine postop care Encourage ambulation, PO intake All questions were answered D/C home tomorrow Results & Data Vital Signs (Past 12 Hours) Vital Signs Temp Pulse Resp BP Pulse Ox Pulse Ox O2 Del Method 04/09/25 07:49 36.8 C 72 17 110/72 98 Room Air 04/09/25 03:49 36.7 C 87 16 111/77 98 Room Air 04/08/25 23:17 96 04/08/25 23:17 96 04/08/25 23:17 36.8 C 86 17 105/69 96 Room Air 04/08/25 22:00 16 99 O2 Del Method 04/09/25 07:49 04/09/25 03:49 04/08/25 23:17 Room Air 04/08/25 23:17 04/08/25 23:17 04/08/25 22:00
[2025-04-09] MEDS ORDERED: KETOROLAC 30 MG/ML VIAL IV PRN (09:53)
[2025-04-09] MEDS: IBUPROFEN 600 MG TAB PO SCH (10:07)
[2025-04-10 04:29] VITALS: RESP 18
[2025-04-10 06:31] LABS: Hematocrit (blood only) 30.3 % (37.0-47.0); Hemoglobin 10.8 g/dl (12.0-16.0)
[2025-04-10 07:37] VITALS: BP 124/70; PULSE 77; TEMP 97.5; O2SAT 99
--- NOTE | 2025-04-10 07:59 | Obstetrical Progress Note ---
Date of Service April 10, 2025 Assessment & Plan Admission and Anticipated Discharge Date Admission Date: April 08, 2025 Subjective Patient is seen and examined. She feels well, no complaints. Pain is under control with oral meds. Ambulating without dizziness Voiding without difficulty Tolerating regular diet with out N&V Flatus + Bleeding is minimal No fever/ chills/ CP/ SOB/ N&V/ Leg pain Bottle feeding without problems Vital Signs Temp Pulse Resp BP Pulse Ox O2 Del Method 04/10/25 07:27 36.4 C L 77 18 124/70 99 Room Air 04/10/25 03:35 36.7 C 74 18 114/75 100 Room Air Lab Results 04/08/25 04/09/25 04/10/25 Range/Units : 06:23 05:50 WBC 11.57 H 12.39 H (4.8-10.8) K/ul RBC 4.14 L 3.29 L (4.20-5.40) M/uL Hgb 13.3 10.8 L 10.8 L (12.0-16.0) g/dl Hct 38.8 30.5 L 30.3 L (37.0-47.0) % MCV 93.7 92.7 (80.0-100.0) fL MCH 32.1 32.8 (25.0-34.0) pg MCHC 34.3 35.4 (32.0-36.0) g/dL RDW Std Deviation 45.0 44.3 (36.4-46.3) fL RDW Coeff of Tushar 13.2 13.2 (11.5-14.5) % Plt Count 209 146 (130-400) K/uL MPV 11.1 11.2 (9.4-12.4) fL Immature Gran % (Auto) 0.4 % Neut % (Auto) 73.6 % Lymph % (Auto) 16.0 % [place] % (Auto) 9.3 % Eos % (Auto) 0.5 % Baso % (Auto) 0.2 % Neut # (Auto) 9.12 H (1.40-6.50) K/uL Lymph # (Auto) 1.98 (1.20-3.40) K/uL [place] # (Auto) 1.15 H (0.11-0.59) K/uL Eos # (Auto) 0.06 (0.00-0.50) K/uL Baso # (Auto) 0.03 (0.00-0.20) K/uL Immature Gran # (Auto) 0.05 (0.01-0.20) K/uL Treponema pallidum Ab Negative (Negative) Blood Type A Positive Antibody Screen NEGATIVE Crossmatch See Detail PE: General: Alert, orientedx3, NAD CVS: S1S2 RRR Lungs; CTAB Abd: soft, NT, ND, BS+, fundus firm, below Umbilicus Incision: Clean, dry, intact Perineum intact, Lochia rubra minimal Ext; NT, no edema AP: 29 yo s/p C Section, pod# 2 VSS Afebrile doing well Continue routine postop care Encourage ambulation, PO intake All questions were answered D/C home , f/u in office Results & Data Vital Signs (Past 12 Hours) Vital Signs Temp Pulse Resp BP Pulse Ox O2 Del Method 04/10/25 07:27 36.4 C L 77 18 124/70 99 Room Air 04/10/25 03:35 36.7 C 74 18 114/75 100 Room Air
[2025-04-10] MEDS ORDERED: IBUPROFEN 600 MG TAB PO PRN (09:53)
[2025-04-10] MEDS ORDERED: ACETAMINOPHEN 325 MG TAB PO PRN (15:53)
== END 2025-04-10 10:18 | disposition home health service (06) | DRG 785 ==
LOC: 4S1 05:58 → EDSTATUS 07:30 → 4E2 12:38
PROC: M.PPTLD (2025-04-08 09:10)